=== PATIENT | female | born 1960 | race Caucasian/White ===

== ENCOUNTER 2016-04-02 22:23 | Emergency (ER) | payer MEDICARE, MEDICAID ==
[~2016-04-02 22:23] MED LIST: Nitroglycerin 0.4 MG TAB 1 EACH ONE
[2016-04-02] MEDS ORDERED: Dexamethasone 10 MG/ML VIAL ONE (22:44)
[2016-04-02] MEDS ORDERED: methylPREDNISolone Sod Succ/PF 125 MG/2 ML VIAL ONE (22:44)
[2016-04-02 22:55] LABS: INR-International Normal Ratio 1.7; PTT 37.7 SEC (22.9-36.1); Prothrombin Time 20.5 SEC (12.0-14.7)
[2016-04-02 23:03] LABS: Eosinophils 9 % (0-10); Hemoglobin 14.2 g/dL (12.0-16.0); Lymphocytes 35 % (21-51); MDiff Complete? YES; Mean Corpuscular HGB CONC 33.6 g/dL (32.0-36.0); Mean Corpuscular Hemoglobin 30.7 pg (27.0-31.0); Mean Corpuscular Volume 91.5 fl (81.0-99.0); Mean Platelet Volume 7.6 fL (7.4-10.4); Monocytes 8 % (0-10); Neutrophil 47 % (42-75); PLT Morphology Comment Appears Increased; Platelet Count 484 thou/uL (130-400); Red Blood Cell (RBC) Count 4.64 mill/uL (4.20-5.40); White Blood Cell (WBC) Count 11.4 thou/uL (4.8-10.8)
[2016-04-02 23:06] LABS: ALT (SGPT) 23 U/L (0-55); AST (SGOT) 20 U/L (5-34); Alkaline Phosphatase 64 U/L (40-150); Anion Gap 18 mmol/L (10-20); BUN (Urea Nitrogen) 11 mg/dL (9.8-20.1); Bilirubin, Total 0.9 mg/dL (0.2-1.2); CK (CPK) 63 U/L (29-168); Calc. Creatinine Clearance 0 mL/min (70-130); Calcium 9.6 mg/dL (7.8-10.44); Carbon Dioxide 21 mmol/L (22-29); Chloride 106 mmol/L (98-107); Estimated GFR-MDRD 54; Globulin 3.1 g/dL (2.4-3.5); Glucose 97 mg/dL (70-105); Potassium 4.3 mmol/L (3.5-5.1); Protein, Total 7.1 g/dL (6.0-8.3); Sodium 141 mmol/L (136-145)
[2016-04-02 23:08] LABS: Troponin I Less than 0.010 ng/mL (< 0.028)
--- NOTE | 2016-04-02 23:10 | RAD ---
PORTABLE CHEST 1 VIEW: Date: 04/02/16 Time: 2242 hours HISTORY: Dyspnea. FINDINGS: Comparison made with exam of 02/12/16. The heart size is enlarged. The lungs are well expanded without confluent areas of consolidation, p neumothorax, dada pulmonary edema, or pleural effusions. There is mild prominence of the pulmonary vascularity. IMPRESSION: Cardiomegaly. POS: [facility]
--- NOTE | 2016-04-03 00:57 | PICIS ---
[facility] EMERGENCY RECORD TRIAGE ([facility] Apr 02, 2016 22:27 JDEA) TRIAGE NOTES: pt in for shortness of breath and chest pain. ([facility] Apr 02, 2016 22:27 JDEA) PATIENT: NAME: Barbie Doshi, AGE: 56, GENDER: female, : Jennie 1960, TIME OF GREET: MonApr 02, 2016 22:24, PREFERRED LANGUAGE: Danish, ETHNICITY: Not or , ECODE BILLING MAP: [facility], SSN: [id number], Zip Code: [address], KG WEIGHT: 97.52, , , PERSON ID: [id number], PCP: MD PIERRE IMELDA. ([facility] Apr 02, 2016 22:27 JDEA) PHONE: . ([place] Apr 03, 2016 00:41) COMPLAINT: SOB. ([facility] Apr 02, 2016 22:27 JDEA) ADMISSION: URGENCY: 2 Emergent, ADMISSION SOURCE: Home, TRANSPORT: Walk-in, BED: TRIAGE. ([facility] Apr 02, 2016 22:27 JDEA) IMMUNIZATIONS: Flu vaccine up to date, Tetanus immunization up to date, Pneumococcal vaccine not up to date. (22:28 JDEA) TRIAGE SCREENING: Patient denies suicidal ideation, Patient denies presence of domestic violence. (22:28 JDEA) LMP: LMP: Not Applicable. (22:28 JDEA) PROVIDERS: TRIAGE NURSE: Carmina Murray RN. ([facility] Apr 02, 2016 22:27 JDEA) VITAL SIGNS: BP 112/98, Pulse 115, Resp 24, Temp 98.6, (Oral), Pain 7, O2 Sat 96, on Room Air, Time 04/02/2016 22:27. (22:27 JDEA) PREVIOUS VISIT ALLERGIES: morphine (bulk). ([facility] Apr 02, 2016 22:27 JDEA) morphine (bulk). (22:28 JDEA) KNOWN ALLERGIES morphine (bulk) CURRENT MEDICATIONS albuterol sulfate: HFA AEROSOL WITH ADAPTER (GRAM) : Strength - 90 mcg : INHALATION Patient Dose: 2 puff(s) every 4 hours prn. (22:28 JDEA) aspirin: TABLET : Strength - 81 mg : ORAL Patient Dose: 81 mg Oral once a day. (22:41 CJEF) carvedilol: TABLET : Strength - 3.125 mg : ORAL Patient Dose: 3.125 mg Oral 2 times a day. (22:42 CJEF) furosemide: TABLET : Strength - 20 mg : ORAL Patient Dose: 20 mg Oral once a day. (22:42 CJEF) lisinopril: TABLET : Strength - 2.5 mg : ORAL Patient Dose: 2..5 mg Oral once a day. (22:42 CJEF) folic acid: CAPSULE : Strength - 20 mg : ORAL Patient Dose: Unknown. (22:42 CJEF) Xarelto: &a-1R&a+25V*p+0X*s9021U*c202B*c15G*c2P*p-0X&a-25V&a+1R Name: Barbie Doshi : 1960 F56 MedRec: [id number] AcctNum: [id number] Prepared: [place] Apr 03, 2016 01:13 by Interface Page 1 of 16 pMD [facility] EMERGENCY RECORD TABLET : Strength - 20 mg : ORAL Patient Dose: 20 mg Oral once a day. (22:42 CJEF) VITAL SIGNS VITAL SIGNS: BP: 112/98, Pulse: 115, Resp: 24, Temp: 98.6 (Oral), Pain: 7, O2 sat: 96 on Room Air, Time: 04/02/2016 22:27. (22:27 JDEA) BP: 106/64, Pulse: 102, Resp: 18, Pain: 10, O2 sat: 100 on Face mask, Time: 04/02/2016 22:59. (22:59 CJEF) BP: 106/64, Pulse: 94, Resp: 19, Pain: 10, O2 sat: 100 on Face mask, Time: 04/02/2016 23:02. (23:02 CJEF) BP: 112/55, Pulse: 96, Resp: 20, O2 sat: 95 on Room Air, Time: 04/02/2016 23:50. (23:50 CJEF) Pain: 8 (Intermittent), Time: 04/02/2016 23:54. (23:54 CJEF) BP: 98/61, Pulse: 109, Resp: 20, O2 sat: 95 on Room Air, Time: 04/02/2016 23:55. (23:55 CJEF) BP: 97/62, Pulse: 97, Resp: 18, Temp: 98.6 (Oral), Pain: 6, O2 sat: 94 on Room Air, Time: 04/03/2016 00:40. ([place] Apr 03, 2016 00:40 JDEA) NURSING ASSESSMENT: CARDIOVASCULAR (22:37 CJEF) CONSTITUTIONAL: Complex assessment performed, Patient arrives, via hospital wheelchair, Unsteady gait, Assistance to cart, History obtained from patient, Patient appears, in distress due to pain, in respiratory distress, Patient cooperative, Patient alert, Oriented to person, place and time, Skin warm, Skin dry, Skin normal in color, Mucous membranes pink, Mucous membranes moist, Patient is well-groomed, PT REPORTS FEELING WEAK FOR SEVERAL DAYS, WHICH WORSENED TONIGHT. PT REPORS HX OF A-FIB AND CHF. PT REPORTS SHE STARTED HAVING SOB AND LEFT SIDE CHEST PAIN TODAY, WHICH SHE STATES CAUSES A "HEAVY" FEELING TO HER LEFT CHEST. PAIN: aching pain, to the left chest, on a scale 0-10 patient rates pain as 10. CARDIOVASCULAR: Cardiovascular assessment findings include heart rate normal, Heart rhythm normal sinus, Heart sounds normal, S1, S2, No associated diaphoresis, Associated with dyspnea, with exertion, with position change. RESPIRATORY/CHEST: Breath sounds clear, Respiratory assessment findings include respiratory effort, labored, Respirations regular, Converses, in short phrases, Neck and chest exam findings include trachea midline, Chest expansion equal, Chest movement symmetrical, Signs of distress, in moderate distress. NOTES: Patient tolerated procedure well. SAFETY: Side rails up, Cart/Stretcher in lowest position, Family at bedside, Call light within reach, Hospital ID band on. NURSING ASSESSMENT: FALL RISK (22:44 CJEF) FALL RISK: Total score 0, No risk for fall. HENDR[place] II FALL RISK: Able to rise in a single movement; no loss of balance with steps(0), Total score 0, Score less than 5. &a-1R&a+25V*p+0X*m3513O*c202B*c15G*c2P*p-0X&a-25V&a+1R Name: Barbie Doshi : 1960 F56 MedRec: [id number] AcctNum: [id number] Prepared: [place] Apr 03, 2016 01:13 by Interface Page 2 of 16 pMD [facility] EMERGENCY RECORD Patient not high risk for falls. NURSING ASSESSMENT: SKIN (22:39 CJEF) SKIN: Skin assessment findings include skin warm, Skin dry, Skin normal in color. DIANA SCALE: (4) Sensory perception has no impairment, (4) Skin is rarely moist, (4) Patient walks frequently, (3) Slightly limited mobility, (3) Adequate nutrition, (3) Patient has no apparent problem moving, Diana Risk Total: 21. NOTES: Patient tolerated procedure well. SAFETY: Side rails up, Cart/Stretcher in lowest position, Family at bedside, Call light within reach, Hospital ID band on. NURSING PROCEDURE: BEDSIDE RADIOLOGY (22:45 CJEF) PATIENT IDENTIFIER: Patient actively involved in identification process, Patient's identity verified by patient stating name, Patient's identity verified by patient stating date. BEDSIDE RADIOLOGY: Portable chest x-ray performed. NOTES: Patient tolerated procedure well. SAFETY: Side rails up, Cart/Stretcher in lowest position, Family at bedside, Call light within reach, Hospital ID band on. NURSING PROCEDURE: REIMBURSEMENT AUDITOR (22:40 CJEF) PATIENT IDENTIFIER: Patient actively involved in identification process, Patient's identity verified by patient stating name, Patient's identity verified by patient stating date. REIMBURSEMENT AUDITOR: Cardiac monitoring indicated for complaint of chest pain, Patient placed on cardiac catheterization technician, Heart rate: 115, showing atrial fibrillation, Patient placed on non-invasive blood pressure monitor, Patient placed on continuous pulse oximetry, Adult/pediatric oxisensor applied. FOLLOW-UP: After procedure, alarms set and on, After procedure, patient tolerating monitoring. NOTES: Patient tolerated procedure well. SAFETY: Side rails up, Cart/Stretcher in lowest position, Family at bedside, Call light within reach, Hospital ID band on. NURSING PROCEDURE: COMMUNICATIONS COMMUNICATIONS: Other notification, Name HUMBERTO, contacted at [facility], Reason for notification TRANSFER FOR UNSTABLE ANGINA. ([place] Apr 03, 2016 00:35 ADEA) Notes: TRANSFER ACCEPTED BY DR. SHELLEY AND IRA GRECO. ([place] Apr 03, 2016 00:39 ADEA) Ambulance service, contacted at [phone], Name of provider PUJA, Person contacted REJI, requested for transfer to another facility, by advanced life support transport, Estimated time of arrival 5 MIN, ALS TRANSPORT. ([place] Apr 03, 2016 00:40 ADEA) NURSING PROCEDURE: EKG CHART (22:33 CJEF) PATIENT IDENTIFIER: Patient actively involved in identification &a-1R&a+25V*p+0X*m0766N*c202B*c15G*c2P*p-0X&a-25V&a+1R Name: Barbie Doshi : 1960 F56 MedRec: [id number] AcctNum: [id number] Prepared: [place] Apr 03, 2016 01:13 by Interface Page 3 of 16 pMD [facility] EMERGENCY RECORD process, Patient's identity verified by patient stating name, Patient's identity verified by patient stating date. EKG: EKG indicated for complaint of chest pain, 12 lead EKG performed on the left chest, first EKG. FOLLOW-UP: After procedure, EKG for interpretation given to Dr. ESTRADA. NOTES: Patient tolerated procedure well. SAFETY: Side rails up, Cart/Stretcher in lowest position, Family at bedside, Call light within reach, Hospital ID band on. NURSING PROCEDURE: IV (22:40 CJEF) PATIENT IDENITIFIER: Patient actively involved in identification process, Patient's identity verified by patient stating name, Patient's identity verified by patient stating date. IV SITE 1: IV therapy indicated for hydration, IV therapy indicated for medication administration, IV established, to the right hand, using an 18 gauge catheter, in one attempt, IV site prepped with CHLORAPREP, Saline lock established, Flushed with normal saline (mls): 10. FOLLOW-UP SITE 1: After procedure, sterile transparent dressing applied. NOTES: Patient tolerated procedure well, Procedure done by CARMINA TOBIAS. SAFETY: Side rails up, Cart/Stretcher in lowest position, Family at bedside, Call light within reach, Hospital ID band on. NURSING PROCEDURE: NURSE NOTES NURSES NOTES: Patient in no apparent distress, Patient states decreased pain, Patient resting quietly, Notes: PT RESTING IN BED QUIETLY WITH FAMILY AT BEDSIDE. NO DISTRESS NOTED. (23:25 CJEF) Patient in no apparent distress, Patient resting quietly, Notes: PT RESTING IN BED QUIETLY WITH FAMILY AT BEDSIDE. NO DISTRESS NOTED. (23:53 CJEF) NURSING PROCEDURE: OXYGEN THERAPY (22:50 CJEF) PATIENT IDENTIFIER: Patient actively involved in identification process, Patient's identity verified by patient stating name, Patient's identity verified by patient stating date. OXYGEN THERAPY: Oxygen therapy indicated for chest pain, Oxygen therapy indicated for respiratory distress, Prior to procedure, breath sounds clear, Oxygen saturation 96%, by adult/pediatric oxisensor, single pulse oximetry reading, Notes: DUO NEB ADMINISTERED X3 DOSES AT 6LPM. FOLLOW-UP: After procedure, oxygen saturation 100%, After procedure, breath sounds clear. NOTES: Patient tolerated procedure well. SAFETY: Side rails up, Cart/Stretcher in lowest position, Family at bedside, Call light within reach, Hospital ID band on. &a-1R&a+25V*p+0X*p9100N*c202B*c15G*c2P*p-0X&a-25V&a+1R Name: Barbie Doshi : 1960 F56 MedRec: [id number] AcctNum: [id number] Prepared: [place] Apr 03, 2016 01:13 by Interface Page 4 of 16 D [facility] EMERGENCY RECORD NURSING PROCEDURE: TRANSFER ([place] Apr 03, 2016 01:00 JDEA) TRANSFER: Reason for transfer need for specialized care, Diagnosis: unstable angina, Accepting institution: [facility], Accepting physician: Lorraine, Referring physician: Sean, Transported by non-urgent ambulance, accompanied by emergency medical services personnel, Report called to receiving facility, Summary of Care printed. BELONGINGS: Belongings and valuables with patient at time of admission include:, Belongings remain with patient. ORDER DETAILS Order Name: B type Natriuretic Peptide, Status: Active, Time: 22:30 04/02/2016, User: HARIS, - Ordered for: MD Estrada Lloyd, - Entered by: MD Estrada Lloyd - Sat Apr 02, 2016 22:30, - Quantity: 1, Order Name: REIMBURSEMENT AUDITOR ED, Status: Done, Time: 22:37 04/02/2016, User: CJEF, - Ordered for: MD Estrada Lloyd, - Entered by: MD Estrada Lloyd - [facility] Apr 02, 2016 22:30, - Quantity: 1, Order Name: Cardiac Profile w/CKMB & Troponin - I, Status: Active, Time: 22:30 04/02/2016, User: HARIS, - Ordered for: MD Estrada Lloyd, - Entered by: MD Estrada Lloyd - [facility] Apr 02, 2016 22:30, - Quantity: 1, Order Name: CBC with Differential, Status: Active, Time: 22:30 04/02/2016, User: HARIS, - Ordered for: MD Estrada Lloyd, - Entered by: MD Estrada Lloyd - [facility] Apr 02, 2016 22:30, - Quantity: 1, Order Name: CK (CPK), Status: Active, Time: 22:30 04/02/2016, User: HARIS, - Ordered for: MD Estrada Lloyd, - Entered by: MD Estrada Lloyd - [facility] Apr 02, 2016 22:30, - Quantity: 1, Order Name: Comprehensive Metabolic Panel, Status: Active, Time: 22:30 04/02/2016, User: HARIS, - Ordered for: MD Estrada Lloyd, - Entered by: MD Estrada Lloyd - [facility] Apr 02, 2016 22:30, - Quantity: 1, Order Name: D-Dimer (Quantitative), Status: Active, Time: 00:40 04/03/2016, User: HARIS, - Ordered for: MD Estrada Lloyd, - Entered by: MD Estrada Lloyd - [place] Apr 03, 2016 00:40, - Quantity: 1, Order Name: EKG 12 Lead in Emergency Room, Status: Active, Time: 22:30 04/02/2016, User: HARIS, - Ordered for: MD Estrada Lloyd, &a-1R&a+25V*p+0X*g8731U*c202B*c15G*c2P*p-0X&a-25V&a+1R Name: Barbie Doshi : 1960 F56 MedRec: [id number] AcctNum: [id number] Prepared: [place] Apr 03, 2016 01:13 by Interface Page 5 of 16 D [facility] EMERGENCY RECORD - Entered by: MD Estrada Lloyd - Sat Apr 02, 2016 22:30, - Quantity: 1, Order Name: ERRT * Smal Vol Neb Initial Trmt, Status: Active, Time: 22:29 04/02/2016, User: HARIS, - Ordered for: MD Estrada Lloyd, - Entered by: MD Estrada Lloyd - Sat Apr 02, 2016 22:29, - Quantity: 1, Order Name: ERRT Small Vol Neb Sub Trmt, Status: Active, Time: 22:29 04/02/2016, User: LL, - Ordered for: MD Estrada Lloyd, - Entered by: MD Estrada Lloyd - Sat Apr 02, 2016 22:29, - Quantity: 1, Order Name: ERRT Oxygen Usage ER, Status: Active, Time: 22:30 04/02/2016, User: LL, - Ordered for: MD Estrada Lloyd, - Entered by: MD Estrada Lloyd - Sat Apr 02, 2016 22:30, - Quantity: 1, Order Name: Magnesium, Status: Active, Time: 22:30 04/02/2016, User: LLDO, - Ordered for: MD Estrada Lloyd, - Entered by: MD Estrada Lloyd - Sat Apr 02, 2016 22:30, - Quantity: 1, Order Name: Protime with INR, Status: Active, Time: 22:30 04/02/2016, User: LLDO, - Ordered for: MD Estrada Lloyd, - Entered by: MD Estrada Lloyd - Sat Apr 02, 2016 22:30, - Quantity: 1, Order Name: PTT, Status: Active, Time: 22:30 04/02/2016, User: LLDO, - Ordered for: MD Estrada Lloyd, - Entered by: MD Estrada Lloyd - Sat Apr 02, 2016 22:30, - Quantity: 1, Order Name: SALINE LOCK, Status: Done, Time: 22:37 04/02/2016, User: [facility], - Ordered for: MD Estrada Lloyd, - Entered by: MD Estrada Lloyd - [place] Apr 02, 2016 22:30, - Quantity: 1, Order Name: XR Chest 1 View Portable, Status: Active, Time: 22:30 04/02/2016, User: HARSI, - Ordered for: MD Estrada Lloyd, - Entered by: MD Estrada Lloyd - [place] Apr 02, 2016 22:30, - Quantity: 1. MEDICATION ADMINISTRATION SUMMARY Drug Name: Dilaudid injection, Dose Ordered: 1 mg, Route: IV Push, Status: Given, Time: 00:53 04/03/2016, Drug Name: *nitroglycerin sublingual, Dose Ordered: 1 tab(s), Route: Oral, Status: Held, Time: 23:57 04/02/2016, Drug Name: *nitroglycerin sublingual, Dose Ordered: 1 tab(s), Route: Oral, Status: Held, Time: 23:56 04/02/2016, &a-1R&a+25V*p+0X*t8313N*c202B*c15G*c2P*p-0X&a-25V&a+1R Name: Barbie Doshi : 1960 F56 MedRec: [id number] AcctNum: [id number] Prepared: [place] Apr 03, 2016 01:13 by Interface Page 6 of 16 pMD [facility] EMERGENCY RECORD Drug Name: *nitroglycerin sublingual, Dose Ordered: 1 tab(s), Route: Oral, Status: Given, Time: 23:52 04/02/2016, Drug Name: DuoNeb, Dose Ordered: 1 inhalation, Route: Nebulize, Status: Given, Time: 23:00 04/02/2016, Drug Name: DuoNeb, Dose Ordered: 1 inhalation, Route: Nebulize, Status: Given, Time: 22:55 04/02/2016, Drug Name: Decadron injection, Dose Ordered: 10 mg, Route: IV Push, Status: Given, Time: 22:52 04/02/2016, Drug Name: Solu-MEDROL Mix-O-Vial, Dose Ordered: 125 mg, Route: IV Push, Status: Given, Time: 22:50 04/02/2016, Drug Name: DuoNeb, Dose Ordered: 1 inhalation, Route: Nebulize, Status: Given, Time: 22:49 04/02/2016, *Additional information available in notes, Detailed record available in Medication Service section. MEDICATION SERVICE Decadron injection: Order: Decadron injection (dexamethasone sod phosphate) - Dose: 10 mg : IV Push Schedule: Now Ordered by: Marvin Estrada MD Entered by: Marvin Estrada MD Sat Apr 02, 2016 22:31 Documented as given by: Izabela Vee, JATINDER Sat Apr 02, 2016 22:52 Patient, Medication, Dose, Route and Time verified prior to administration. Amount given: 10 MG, IV SITE #1 IVP, subsequent different medication, Slowly, Awake and alert- acceptable, Connections checked prior to administration, Line traced prior to administration, Catheter placement confirmed via flush prior to administration, IV site without signs or symptoms of infiltration during medication administration, No swelling during administration, No drainage during administration, IV flushed after administration, Correct patient, time, route, dose and medication confirmed prior to administration, Patient advised of actions and side-effects prior to administration, Allergies confirmed and medications reviewed prior to administration, Patient tolerated procedure well, Patient in position of comfort, Side rails up, Cart in lowest position, Family at bedside. : Follow Up : Response assessment performed, No signs or symptoms of allergic reaction noted, Advised not to ambulate without assistance, Patient in position of comfort, Side rails up, Cart in lowest position, Family at bedside. (23:00 [facility]) DuoNeb: Order: DuoNeb (ipratropium bromide/albuterol sulfate) - Dose: 1 inhalation : Nebulize Schedule: Every 5 minutes Repeat: 3 DOSES Ordered by: Marvin Estrada MD Entered by: Marvin Estrada MD Sat Apr 02, 2016 22:31 Documented as given by: Izabela Vee RN Sat Apr 02, 2016 22:49 Patient, Medication, Dose, Route and Time verified prior to administration. Amount given: 1 NEB, Site: Medication administered via Hand-held nebulizer, With oxygen, Correct patient, time, route, dose and &a-1R&a+25V*p+0X*t8957J*c202B*c15G*c2P*p-0X&a-25V&a+1R Name: Barbie Doshi : 1960 F56 MedRec: [id number] AcctNum: [id number] Prepared: [place] Apr 03, 2016 01:13 by Interface Page 7 of 16 pMD [facility] EMERGENCY RECORD medication confirmed prior to administration, Patient advised of actions and side-effects prior to administration, Allergies confirmed and medications reviewed prior to administration, Patient tolerated procedure well, Patient in position of comfort, Side rails up, Cart in lowest position, Family at bedside. : Follow Up : Response assessment performed, No signs or symptoms of allergic reaction noted, Decreased respiratory effort, Advised not to ambulate without assistance, Patient in position of comfort, Side rails up, Cart in lowest position, Family at bedside. (23: [facility]) DuoNeb: Order: DuoNeb (ipratropium bromide/albuterol sulfate) - Dose: 1 inhalation : Nebulize Schedule: Every 5 minutes Repeat: 3 DOSES Ordered by: Marvin Estrada MD Entered by: Izabela Vee RN [facility] Apr 02, 2016 22:56 Documented as given by: Izabela Vee RN [facility] Apr 02, 2016 22:55 Patient, Medication, Dose, Route and Time verified prior to administration. Amount given: 1 NEB, With oxygen, Correct patient, time, route, dose and medication confirmed prior to administration, Patient advised of actions and side-effects prior to administration, Allergies confirmed and medications reviewed prior to administration, Patient tolerated procedure well, Patient in position of comfort, Side rails up, Cart in lowest position, Family at bedside. : Follow Up : Response assessment performed, No signs or symptoms of allergic reaction noted, Decreased respiratory effort, Advised not to ambulate without assistance, Patient in position of comfort, Side rails up, Cart in lowest position, Family at bedside. (23: [facility]) DuoNeb: Order: DuoNeb (ipratropium bromide/albuterol sulfate) - Dose: 1 inhalation : Nebulize Schedule: Every 5 minutes Repeat: 3 DOSES Ordered by: Marvin Estrada MD Entered by: Izabela Vee RN [facility] Apr 02, 2016 22:57 Documented as given by: Izabela Vee RN [facility] Apr 02, 2016 23:00 Patient, Medication, Dose, Route and Time verified prior to administration. Amount given: 1 NEB, Site: Medication administered via Hand-held nebulizer, With oxygen, Correct patient, time, route, dose and medication confirmed prior to administration, Patient advised of actions and side-effects prior to administration, Allergies confirmed and medications reviewed prior to administration, Patient tolerated procedure well, Patient in position of comfort, Side rails up, Cart in lowest position, Family at bedside. : Follow Up : Response assessment performed, No signs or symptoms of allergic reaction noted, Decreased respiratory effort, Advised not to ambulate without assistance, Patient in position of comfort, Side rails up, Cart in lowest position, Family at bedside. (23:01 [facility]) nitroglycerin sublingual: Order: nitroglycerin sublingual &a-1R&a+25V*p+0X*h3097Y*c202B*c15G*c2P*p-0X&a-25V&a+1R Name: Barbie Doshi : 1960 F56 MedRec: [id number] AcctNum: [id number] Prepared: [place] Apr 03, 2016 01:13 by Interface Page 8 of 16 pMD [facility] EMERGENCY RECORD (nitroglycerin) - Dose: 1 tab(s) : Oral Schedule: Every 5 minutes Repeat: 3 DOSES Notes: UNTIL PAIN GONE OR SBP DROPS BELOW 105 Ordered by: Marvin Estrada MD Entered by: Marvin Estrada MD Sat Apr 02, 2016 23:47 Documented as given by: Izabela Vee RN Sat Apr 02, 2016 23:52 Patient, Medication, Dose, Route and Time verified prior to administration. Amount given: 0.4 MG, Site: Medication administered S.L., Mouth check performed after administration of medication, Patient appears Awake and alert- acceptable, Correct patient, time, route, dose and medication confirmed prior to administration, Patient advised of actions and side-effects prior to administration, Allergies confirmed and medications reviewed prior to administration, Patient tolerated procedure well, Patient in position of comfort, Side rails up, Cart in lowest position, Family at bedside. nitroglycerin sublingual: Order: nitroglycerin sublingual (nitroglycerin) - Dose: 1 tab(s) : Oral Schedule: Every 5 minutes Repeat: 3 DOSES Notes: UNTIL PAIN GONE OR SBP DROPS BELOW 105 Ordered by: Marvin Estrada MD Entered by: Izabela Vee RN Sat Apr 02, 2016 23:53 , Held by: Izabela Vee RN Sat Apr 02, 2016 23:56 Reason: Vital signs out of range:BP 98/61. nitroglycerin sublingual: Order: nitroglycerin sublingual (nitroglycerin) - Dose: 1 tab(s) : Oral Schedule: Every 5 minutes Repeat: 3 DOSES Notes: UNTIL PAIN GONE OR SBP DROPS BELOW 105 Ordered by: Marvin Estrada MD Entered by: Izabela Vee RN Sat Apr 02, 2016 23:53 , Held by: Izabela Vee RN Sat Apr 02, 2016 23:57 Reason: Vital signs out of range. Solu-MEDROL Mix-O-Vial: Order: Solu-MEDROL Mix-O-Vial (methylprednisolone sod succ) - Dose: 125 mg : IV Push Schedule: Now Ordered by: Marvin Estrada MD Entered by: Marvin Estrada MD Sat Apr 02, 2016 22:31 Documented as given by: Izabela Vee RN Sat Apr 02, 2016 22:50 Patient, Medication, Dose, Route and Time verified prior to administration. Amount given: 125 MG, IV SITE #1 IVP, initial medication, Slowly, Awake and alert- acceptable, Connections checked prior to administration, Line traced prior to administration, Catheter placement confirmed via flush prior to administration, IV site without signs or symptoms of infiltration during medication administration, No swelling during administration, No drainage during administration, IV flushed after administration, Correct patient, time, route, dose and medication confirmed prior to administration, Patient advised of actions and side-effects prior to administration, Allergies confirmed and medications reviewed prior to administration, &a-1R&a+25V*p+0X*v6989P*c202B*c15G*c2P*p-0X&a-25V&a+1R Name: Barbie Doshi : 1960 F56 MedRec: [id number] AcctNum: [id number] Prepared: [place] Apr 03, 2016 01:13 by Interface Page 9 of 16 pMD [facility] EMERGENCY RECORD Patient tolerated procedure well, Patient in position of comfort, Side rails up, Cart in lowest position, Family at bedside. : Follow Up : Response assessment performed, No signs or symptoms of allergic reaction noted, Advised not to ambulate without assistance, Patient in position of comfort, Side rails up, Cart in lowest position, Family at bedside. (23:01 CJEF) HPI SHORTNESS OF BREATH (23:16 LLDO) CHIEF COMPLAINT: Patient presents for evaluation of shortness of breath, Patient presents for evaluation of chest pain, Patient presents for evaluation of pt says she hasn't been feeling good for "a couple of days." tonight, though, the sob became much owrse and she started with worsening cough and some bilateral anterior chest pain when she coughed. some nausea. HISTORIAN: History provided by patient, History provided by patient's spouse, the chest pain is mostly substernal with radiation into the middle of the back. also rad in to both shoulders and down both arms. worse with deep respiration and cough but never completely clears. scant production. LOCATION: Symptoms are generalized. QUALITY: Denies tightness, Denies wheezing, Pain is dull in nature, described as aching, described as pressure-like. SEVERITY: Maximum severity of symptoms moderate, Currently symptoms are moderate. TIME COURSE: Gradual onset of symptoms, Symptoms are worsening, are constant. ASSOCIATED WITH: Associated with anxiety, Associated with cough, Associated with chest pain, Associated with dyspnea on exertion, Associated with hyperventilation, Associated with upper respiratory infection, No associated vomiting, No associated wheezing. EXACERBATED BY: Patient's condition exacerbated by deep breaths, Patient's condition exacerbated by exercise. RELIEVED BY: Patient's condition relieved by nothing. RISK FACTORS: Coronary artery disease risk factors, include known coronary artery disease, include hypertension, Thoracic aortic dissection risk factors, include hypertension, Pulmonary embolism risk factors, not applicable to this patient. ROS CONSTITUTIONAL: Historian reports fatigue, reports malaise. (23:34 LLDO) EYES: Negative eye review of systems, Historian denies eye pain, denies eye redness, denies eye discharge. (23:41 LLDO) ENT: Negative ears, nose, throat review of systems, Historian denies epistaxis, denies rhinorrhea, denies sinus pain, denies sore throat. (23:41 LLDO) CARDIOVASCULAR: Historian reports chest pain, &a-1R&a+25V*p+0X*y5162I*c202B*c15G*c2P*p-0X&a-25V&a+1R Name: Barbie Doshi : 1960 F56 MedRec: [id number] AcctNum: [id number] Prepared: Rica Apr 03, 2016 01:13 by Interface Page 10 of 16 pMD [facility] EMERGENCY RECORD radiation to, the back, Historian denies diaphoresis, reports dyspnea on exertion, denies edema. (23:34 LLDO) RESPIRATORY: Historian reports cough, reports shortness of breath, denies sputum, denies stridor, denies wheezing. (23:34 LLDO) GI: Historian denies vomiting. (23:34 LLDO) GENITOURINARY FEMALE: Negative genitourinary review of systems, Historian denies dysuria, denies frequency, denies urgency. (23:41 LLDO) MUSCULOSKELETAL: Negative musculoskeletal review of systems, Historian denies arthralgias, denies back pain, denies injury, denies myalgias, denies neck pain. (23:41 LLDO) SKIN: Negative skin review of systems, Historian denies cellulitis, denies rash, denies skin changes, denies skin lesions. (23:41 LLDO) NEUROLOGIC: Negative neurologic review of systems, Historian denies confusion, denies dizziness, denies focal weakness, denies mental status changes. (23:41 LLDO) HEMO/LYMPHATIC: Normal hematologic/lymphatic system review, Historian denies abnormal blood clotting, denies gum bleeding, denies petechiae. (23:41 LLDO) ALLERGIC/IMMUNOLOGIC: Normal allergy/immunologic system review, Historian denies eczema, denies environmental allergies, denies food allergies. (23:41 LLDO) PSYCHIATRIC: Historian reports anxiety. (23:34 LLDO) NOTES: All systems reviewed, negative except as described above. (23:34 LLDO) PAST MEDICAL HISTORY MEDICAL HISTORY: Past medical history includes cardiac history, congestive heart failure, Past medical history includes cardiac history, myocardial infarction, Past medical history includes history of hypertension, Past medical history includes pulmonary disease, asthma. (22:28 JDEA) FEMALE SURGICAL HISTORY: Surgical history of cholecystectomy, Surgical history of orthopedic surgery, TOMAS FEET, TOMAS KNEE, L LEG, R HIP, Surgical history of splenectomy, Surgical history of tubal ligation. (22:28 JDEA) PSYCHIATRIC HISTORY: No previous psychiatric history. (22:28 JDEA) SOCIAL HISTORY: Lives at home, with family, Patient denies alcohol use, Patient denies drug use, Patient has no smoking history. (22:28 JDEA) NOTES: Nursing records reviewed, Agree with nursing records, Medication list reviewed. (23:39 LLDO) PHYSICAL EXAM CONSTITUTIONAL: Vital Signs Reviewed, Patient afebrile, Pulse normal, Blood pressure normal, Respiratory rate normal, Normal pulse &a-1R&a+25V*p+0X*c7636T*c202B*c15G*c2P*p-0X&a-25V&a+1R Name: Barbie Doshi : 1960 F56 MedRec: [id number] AcctNum: [id number] Prepared: Rica Apr 03, 2016 01:13 by Interface Page 11 of 16 pMD [facility] EMERGENCY RECORD oximetry, Patient appears non toxic, Patient appears pain free, Patient alert and oriented to person, place and time, Nursing notes reviewed. (23:36 LLDO) HEAD: Head exam normal, Head exam included findings of head atraumatic, normocephalic. (23:41 LLDO) EYES: Eye exam normal, Eye exam included findings of eyelids normal to inspection, Pupils equally round and reactive to light, Extraocular muscles intact. (23:41 LLDO) ENT: ENT exam normal, Ear exam normal, Nose exam normal. (23:41 LLDO) NECK: Neck exam normal, Neck exam included findings of normal range of motion, Trachea midline, no meningeal signs, no tenderness. (23:41 LLDO) RESPIRATORY CHEST: Respiratory exam included findings of no respiratory distress, Wheezing present, Rales present, Chest exam included findings of chest movement symmetrical, Chest expansion equal, WHEEZES MILD AND DIFFUSE AND RALES MILD AND DIFFUSE. (23:36 LLDO) CARDIOVASCULAR: Cardiovascular exam included findings of, rate normal, rhythm irregularly irregular, Heart sounds normal, Point of maximal impulse normal. (23:36 LLDO) ABDOMEN FEMALE: Abdominal exam normal, Abdominal exam included findings of abdomen nontender, Bowel sounds normal, no peritoneal signs. (23:41 LLDO) BACK: Back exam normal, Back exam included findings of normal inspection, range of motion normal. (23:41 LLDO) UPPER EXTREMITY: Upper extremity exam normal, Upper extremity exam included findings of inspection normal, Range of motion normal. (23:41 LLDO) LOWER EXTREMITY: Lower extremity exam normal, Lower extremity exam included findings of inspection normal, Range of motion normal. (23:41 LLDO) NEURO: Neuro exam normal, Neuro exam findings include patient oriented to person, place and time, Speech normal, [place] coma scale 15. (23:41 LLDO) SKIN: Skin exam normal, Skin exam included findings of skin warm, dry, and normal in color, no rash. (23:41 LLDO) PSYCHIATRIC: Psychiatric exam normal, Psychiatric exam included findings of patient oriented to person place and time, Normal affect. (23:41 LLDO) EVENTS TRANSFER: Triage to Emergency Triage. (22:27 JDEA) Emergency Triage to Main ED -05. (22:28 JDEA) Removed from Emergency Main ED -05. (MonApr 03, 2016 01:00 JDEA) DOCTOR NOTES (MonApr 03, 2016 01:02 LLDO) TEXT: accepted by dr thrasher for [facility]. PROBLEM LIST &a-1R&a+25V*p+0X*d6020H*c202B*c15G*c2P*p-0X&a-25V&a+1R Name: Barbie Doshi : 1960 F56 MedRec: [id number] AcctNum: [id number] Prepared: MonApr 03, 2016 01:13 by Interface Page 12 of 16 pMD [facility] EMERGENCY RECORD No recorded problems DIAGNOSIS (MonApr 03, 2016 00:46 LLDO) FINAL: PRIMARY: UNSTABLE ANGINA, ADDITIONAL: CAD, COPD UNSPECIFIED, Hypertension, UNSPECIFIED ATRIAL FIBRILLATION. DISPOSITION PATIENT: Disposition Type: Transfer, Disposition: Transfer to [facility]. (MonApr 03, 2016 00:27 LLDO) Patient left the department. (MonApr 03, 2016 01:00 JDEA) PRESCRIPTION No recorded prescriptions IMAGING *EKG: Image captured from scanner. (23:03 [facility]) *MEMORANDUM OF TRANSFER: Image captured from scanner. (MonApr 03, 2016 00:48 ADEA) CONSENT FOR TRANSFER: Image captured from scanner. (MonApr 03, 2016 00:49 ADEA) EMS TRANSPORT ORDERS: Image captured from scanner. (MonApr 03, 2016 00:49 ADEA) TRANSFER WORKSHEET: Image captured from scanner. (MonApr 03, 2016 00:59 ADEA) Page 2 added. Image captured from scanner. (MonApr 03, 2016 01:00 ADEA) *SUPPLY CHARGE SHEET: Image captured from scanner. (MonApr 03, 2016 01:01 ADEA) ADMIN DIGITAL SIGNATURE: MD Estrada Lloyd. (MonApr 03, 2016 00:46 LLDO) JATINDER Murray Andrea. (MonApr 03, 2016 00:53 ADEA) JATINDER Murray Andrea. (MonApr 03, 2016 00:53 ADEA) MD Estrada Lloyd. (MonApr 03, 2016 01:05 LLDO) RESULTS RADIOLOGY: XR Chest 1 View Portable Observe DT: [facility] Apr 02, 2016 22:38, CXRP PORTABLE CHEST 1 VIEW: Date: 04/02/16 Time: 2242 hours HISTORY: Dyspnea. FINDINGS: Comparison made with exam of 02/12/16. &a-1R&a+25V*p+0X*e5425W*c202B*c15G*c2P*p-0X&a-25V&a+1R Name: Barbie Doshi : 1960 F56 MedRec: [id number] AcctNum: [id number] Prepared: MonApr 03, 2016 01:13 by Interface Page 13 of 16 pMD [facility] EMERGENCY RECORD The heart size is enlarged. The lungs are well expanded without confluent areas of consolidation, p neumothorax, dada pulmonary edema, or pleural effusions. There is mild prominence of the pulmonary vascularity. IMPRESSION: Cardiomegaly. POS: [facility] . (23:16 CJEF) LABORATORY: Cardiac Profile w/CKMB & TropI Collection DT: [facility] Apr 02, 2016 22:43, CKMB 1.0 ng/mL, Range (0-6.6), Troponin I Less than 0.010 ng/mL, Range (< 0.028), Reference Range , 0.00 - 0.028 ng/mL Negative 0.029 - 0.29 ng/mL , Indeterminate Greater or Equal to 0.3 ng/mL Strongly suggests [place] , . (23:16 CJ) Magnesium Collection DT: [facility] Apr 02, 2016 22:43, Magnesium 2.0 mg/dL, Range (1.6-2.6), NOTE: Higher values can be expected in females during menses . (23:16 CJEF) CK (CPK) Collection DT: [facility] Apr 02, 2016 22:43, CK (CPK) 63 U/L, Range (29-168). (23:16 CJ) Comprehensive Metabolic Panel Collection DT: [facility] Apr 02, 2016 22:43, Sodium 141 mmol/L, Range (136-145), Potassium 4.3 mmol/L, Range (3.5-5.1), Chloride 106 mmol/L, Range (98-107), *Carbon Dioxide 21 - L mmol/L, Range (22-29), Anion Gap 18 mmol/L, Range (10-20), BUN (Urea Nitrogen) 11 mg/dL, Range (9.8-20.1), Creatinine 1.05 mg/dL, Range (0.6-1.1), Estimated GFR-MDRD 54 , Reference Range for Estimated GFR: Greater than 90, mL/min/1.73 m2 NOTE: The MDRD equation has not been validated for use, with the elderly (over 70 years of age), women, patients with, serious comorbid condition or persons with extremes of body size, muscle, mass, or nutritional status. , Glucose 97 mg/dL, Range (70-105), Calcium 9.6 mg/dL, Range (7.8-10.44), Bilirubin, Total 0.9 mg/dL, Range (0.2-1.2), Protein, Total 7.1 g/dL, Range (6.0-8.3), NOTE: Plasma values are generally 0.3 to 0.5 g/dL higher than serum values, due to the presence of fibrinogen. , Albumin 4.0 g/dL, Range (3.5-5.0), &a-1R&a+25V*p+0X*c7996L*c202B*c15G*c2P*p-0X&a-25V&a+1R Name: Barbie Doshi : 1960 F56 MedRec: [id number] AcctNum: [id number] Prepared: Rica Apr 03, 2016 01:13 by Interface Page 14 of 16 pMD [facility] EMERGENCY RECORD Globulin 3.1 g/dL, Range (2.4-3.5), Alb/Glob Ratio 1.3 g/dL, Range (1.2-2.2), Alkaline Phosphatase 64 U/L, Range (40-150), AST (SGOT) 20 U/L, Range (5-34), ALT (SGPT) 23 U/L, Range (0-55). (23:16 CJ) CBC with Differential Collection DT: [facility] Apr 02, 2016 22:43, *White Blood Cell (WBC) Count 11.4 - H thou/uL, Range (4.8-10.8), Red Blood Cell (RBC) Count 4.64 mill/uL, Range (4.20-5.40), Hemoglobin 14.2 g/dL, Range (12.0-16.0), Hematocrit 42.4 %, Range (36.0-47.0), Mean Corpuscular Volume 91.5 fl, Range (81.0-99.0), Mean Corpuscular Hemoglobin 30.7 pg, Range (27.0-31.0), Mean Corpuscular HGB CONC 33.6 g/dL, Range (32.0-36.0), RBC Distribution Width 12.0 %, Range (11.5-14.5), *Platelet Count 484 - H thou/uL, Range (130-400), Mean Platelet Volume 7.6 fL, Range (7.4-10.4), Neutrophil 47 %, Range (42-75), Lymphocytes 35 %, Range (21-51), Monocytes 8 %, Range (0-10), Eosinophils 9 %, Range (0-10), Basophils 1 %, Range (0-2), *PLT Morphology Comment Appears Increased - , * H . (23:16 CJEF) PTT Collection DT: [facility] Apr 02, 2016 22:43, See comment below , Anticoagulant? NONE Medical Necessity SUSPECT COAGULOPATHY , *PTT 37.7 - H SEC, Range (22.9-36.1). (23:16 CJEF) Protime with INR Collection DT: [facility] Apr 02, 2016 22:43, See comment below , Anticoagulant? NONE Medical Necessity SUSPECT COAGULOPATHY , *Prothrombin Time 20.5 - H SEC, Range (12.0-14.7), INR-International Normal Ratio 1.7 , ATTENTION: READ CAREFULLY , The, recommended therapeutic ranges for oral anticoagulant treatments are: , , Low Intensity: 1.5 - 2.0 Moderate Intensity: 2.0, - 3.0 High Intensity (1): 2.5 - 3.5 High, Intensity (2): 3.0 - 4.0 CRITICAL: >, 4.0 . (23:16 CJEF) B type Natriuretic Peptide Collection DT: [facility] Apr 02, 2016 22:43, *B type Natriuretic Peptide 225.0 - H pg/mL, Range (0-100). &a-1R&a+25V*p+0X*g4718G*c202B*c15G*c2P*p-0X&a-25V&a+1R Name: TicoBarbie Laurence : 1960 F56 MedRec: [id number] AcctNum: [id number] Prepared: Rica Apr 03, 2016 01:13 by Interface Page 15 of 16 pMD [facility] EMERGENCY RECORD (23:26 CJEF) D-Dimer (Quantitative) Collection DT: [facility] Apr 03, 2016 00:45, D-Dimer Test 0.31 *mcg/mL, Range (0.27-0.43), * Reference Range Units: mcg/mL of fibrinogen equivalent, units(FEU) Based upon a retrospective study of [facility] patients in June 2005, a result of Less than 0.44 mcg/mL FEU is, predictive of the absence of a DVT or PE. . (Rica Apr 03, 2016 00:58 ADEA) Eugene: KEVIN=JATINDER Murray, Yash CHANG=JATINDER Vee, Izabela FINN=JATINDER Murray, Carmina LLDO=MD Sean, Marvin &a-1R&a+25V*p+0X*q0325O*c202B*c15G*c2P*p-0X&a-25V&a+1R Name: Barbie Doshi : 1960 F56 MedRec: [id number] AcctNum: [id number] Prepared: Rica Apr 03, 2016 01:13 by Interface Page 16 of 16 pMD [facility]
== END 2016-04-03 01:00 | disposition short-term general hospital (02) ==
LOC: MADERS 22:23
DX: I20.0 Unstable angina (principal); I11.0 Hypertensive heart disease with heart failure; I50.9 Heart failure, unspecified; J44.9 Chronic obstructive pulmonary disease, unspecified; I48.91 Unspecified atrial fibrillation; Z79.82 Long term (current) use of aspirin
CPT/HCPCS: 71010; 80053; 82550; 82553; 83735; 83880; 84484; 85025; 85379; 85610; 85730; 93005; 94640; 96374; 96375; J1100; J1170; J2930; J7620

== ENCOUNTER 2016-08-29 08:17 | Outpatient (CLI) | payer MEDICARE ==
[2016-08-29 09:05] LABS: INR-International Normal Ratio 2.8; Prothrombin Time 29.3 SEC (12.0-14.7)
== END 2016-08-29 08:18 | disposition home or self-care (01) ==
LOC: MADLABBHPM 08:17
PROVIDERS: ATTEND Family Medicine
DX: I48.91 Unspecified atrial fibrillation (principal)
CPT/HCPCS: 36415; 85610

== ENCOUNTER 2016-11-15 10:42 | Outpatient (CLI) | payer MEDICARE ==
[2016-11-15 11:12] LABS: Prothrombin Time 32.7 SEC (12.0-14.7)
== END 2016-11-15 10:43 | disposition home or self-care (01) ==
LOC: MADLABBHPM 10:42
PROVIDERS: ATTEND Family Medicine
DX: Z51.81 Encounter for therapeutic drug level monitoring (principal); I48.91 Unspecified atrial fibrillation; Z79.01 Long term (current) use of anticoagulants
CPT/HCPCS: 36415; 85610

== ENCOUNTER 2016-11-24 21:32 | Emergency (ER) | payer MEDICARE ==
--- NOTE | 2016-11-24 22:25 | RAD ---
THREE VIEWS LEFT SHOULDER 11/24/16 HISTORY: Shoulder pain for two days after falling off back porch. FINDINGS: There is deformity involving the left scapula, but this was also seen on chest x-ray on 04/02/16 as we ll as on a chest x-ray of 02/12/16 and may be related to remove fracture and deformity of the left s capula. No definite acute fracture or dislocation is seen. Coracoclavicular and acromioclavicular di stances are within normal limits. Remote left lateral third rib fracture is again seen. Vascular patrcie cification seen in the thoracic aorta. IMPRESSION: 1. Deformity involving the left scapula, but this was seen on prior studies including a chest x -ray on 02/12/16 suggesting deformity from more remote fracture of the left scapula. 2. No acute fracture or dislocation is seen involving the left shoulder. 3. Remote fracture involving the left lateral third rib. POS: [facility]
--- NOTE | 2016-11-24 22:27 | RAD ---
TWO VIEWS LEFT CLAVICLE 11/24/16 HISTORY: Shoulder pain for two days after falling off back porch. FINDINGS/IMPRESSION: No acute fracture seen involving the left clavicle. The acromioclavicular and coracoclavicular dista nces are within normal limits. There is deformity involving the left scapula which was noted on prior chest x-rays including studie s on 04/02/16 and 02/12/16 suggesting remote fracture and deformity of the left scapula. POS: [facility]
[2016-11-24] MEDS ORDERED: Diazepam 5 MG TAB ONE (22:29)
[2016-11-24] MEDS ORDERED: Dexamethasone 4 MG TAB ONE (22:29)
[2016-11-24] MEDS ORDERED: HYDROcodone/Acetaminophen 10/325 mg Tablet ONE (22:29)
--- NOTE | 2016-11-24 22:29 | RAD ---
TWO VIEWS LEFT HUMERUS: 11/24/16 HISTORY: Left shoulder pain for two days after falling off back porch. FINDINGS/IMPRESSION: No acute fracture seen involving the left humerus. There is deformity of the left scapula which was described on views of the left shoulder and is likely related to remote fracture and deformity. Ther e is a remote fracture involving the anterior left second and lateral left third ribs. POS: [facility]
== END 2016-11-24 22:41 | disposition home or self-care (01) ==
LOC: MADERS 21:32
DX: S40.012A Contusion of left shoulder, initial encounter (principal); E78.5 Hyperlipidemia, unspecified; J45.909 Unspecified asthma, uncomplicated; I50.9 Heart failure, unspecified; I11.0 Hypertensive heart disease with heart failure; I48.91 Unspecified atrial fibrillation; I25.2 Old myocardial infarction; M19.90 Unspecified osteoarthritis, unspecified site; Z79.82 Long term (current) use of aspirin; Z79.899 Other long term (current) drug therapy; W18.30XA Fall on same level, unspecified, initial encounter
CPT/HCPCS: J8540

== ENCOUNTER 2016-12-02 10:07 | Outpatient (CLI) | payer MEDICARE ==
[2016-12-02 10:30] LABS: INR-International Normal Ratio 2.8; Prothrombin Time 30.6 SEC (12.0-14.7)
== END 2016-12-02 10:08 | disposition home or self-care (01) ==
LOC: MADLABBHPM 10:07
PROVIDERS: ATTEND Family Medicine
DX: Z51.81 Encounter for therapeutic drug level monitoring (principal); Z79.01 Long term (current) use of anticoagulants
CPT/HCPCS: 36415; 85610

== ENCOUNTER 2016-12-08 08:14 | Outpatient (CLI) | payer MEDICARE ==
[2016-12-08 08:31] LABS: INR-International Normal Ratio 2.7; Prothrombin Time 29.7 SEC (12.0-14.7)
== END 2016-12-08 08:15 | disposition home or self-care (01) ==
LOC: MADLABBHPM 08:14
PROVIDERS: ATTEND Family Medicine
DX: Z51.81 Encounter for therapeutic drug level monitoring (principal); Z79.01 Long term (current) use of anticoagulants
CPT/HCPCS: 36415; 85610

== ENCOUNTER 2017-01-05 10:58 | Outpatient (CLI) | payer MEDICARE ==
[2017-01-05 11:35] LABS: INR-International Normal Ratio 3.2; Prothrombin Time 33.9 SEC (12.0-14.7)
== END 2017-01-05 10:59 | disposition home or self-care (01) ==
LOC: MADLABBHPM 10:58
PROVIDERS: ATTEND Family Medicine
DX: Z51.81 Encounter for therapeutic drug level monitoring (principal); Z79.01 Long term (current) use of anticoagulants
CPT/HCPCS: 36415; 85610

== ENCOUNTER 2017-01-12 09:12 | Outpatient (CLI) | payer MEDICARE ==
[2017-01-12 09:38] LABS: INR-International Normal Ratio 2.4; Prothrombin Time 26.7 SEC (12.0-14.7)
== END 2017-01-12 09:13 | disposition home or self-care (01) ==
LOC: MADLABBHPM 09:12
PROVIDERS: ATTEND Family Medicine
DX: Z51.81 Encounter for therapeutic drug level monitoring (principal); Z79.01 Long term (current) use of anticoagulants
CPT/HCPCS: 36415; 85610

== ENCOUNTER 2017-02-11 19:06 | Emergency (ER) | payer MEDICARE ==
[2017-02-11 19:40] LABS: INR-International Normal Ratio 3.3; PTT 64.6 SEC (22.9-36.1); Prothrombin Time 34.8 SEC (12.0-14.7)
--- NOTE | 2017-02-11 19:48 | RAD ---
RADIOGRAPH CHEST 2 VIEWS: 02/11/17 HISTORY: 57-year-old female with chest pain. FINDINGS: There is cardiomegaly. There is no evidence of air space density, pulmonary edema, or pneumothorax. T here is no pleural effusion. IMPRESSION: 1) No acute pulmonary findings. 2) Cardiomegaly without congestive heart failure. juma [] POS: [facility]
[2017-02-11 19:49] LABS: #Basophils 0.2 thou/uL (0.0-0.2); #Eosinphils 0.7 thou/uL (0.0-0.7); #Lymphocytes 2.6 thou/uL (1.20-3.40); #Monocytes 0.9 thou/uL (0.11-0.59); #Neutrophils 5.6 thou/uL (1.40-6.50); %Basophils 1.7 % (0.0-1.0); %Eosinophils 6.9 % (0.0-10.0); %Lymphocytes 25.6 % (21.0-51.0); %Monocytes 9.4 % (0.0-10.0); %Neutrophils 56.5 % (42.0-75.0); Hemoglobin 13.6 g/dL (12.0-16.0); Mean Corpuscular HGB CONC 32.7 g/dL (32.0-36.0); Mean Corpuscular Hemoglobin 31.1 pg (27.0-31.0); Mean Corpuscular Volume 95.3 fl (81.0-99.0); Mean Platelet Volume 7.6 fL (7.4-10.4); Platelet Count 416 thou/uL (130-400); RBC Distribution Width 12.1 % (11.5-14.5); Red Blood Cell (RBC) Count 4.36 mill/uL (4.20-5.40); White Blood Cell (WBC) Count 9.9 thou/uL (4.8-10.8)
[2017-02-11 19:50] LABS: ALT (SGPT) 21 U/L (8-55); AST (SGOT) 24 U/L (5-34); Albumin 4.2 g/dL (3.5-5.0); Alkaline Phosphatase 63 U/L (40-150); Anion Gap 18 mmol/L (10-20); BUN (Urea Nitrogen) 14 mg/dL (9.8-20.1); Bilirubin, Total 0.8 mg/dL (0.2-1.2); CK (CPK) 204 U/L (29-168); Calc. Creatinine Clearance 0 mL/min (70-130); Calcium 9.8 mg/dL (7.8-10.44); Carbon Dioxide 23 mmol/L (22-29); Chloride 105 mmol/L (98-107); Estimated GFR-MDRD 57; Globulin 3.8 g/dL (2.4-3.5); Glucose 93 mg/dL (70-105); Potassium 3.5 mmol/L (3.5-5.1); Sodium 142 mmol/L (136-145)
[2017-02-11 19:53] LABS: CKMB 1.8 ng/mL (0-6.6); Troponin I Less than 0.010 ng/mL (< 0.028)
== END 2017-02-11 23:48 | disposition home or self-care (01) ==
LOC: MADERS 19:06
DX: R07.89 Other chest pain (principal); I48.91 Unspecified atrial fibrillation; E78.5 Hyperlipidemia, unspecified; I11.0 Hypertensive heart disease with heart failure; I50.9 Heart failure, unspecified; J45.909 Unspecified asthma, uncomplicated; M19.90 Unspecified osteoarthritis, unspecified site; Z79.82 Long term (current) use of aspirin; Z79.891 Long term (current) use of opiate analgesic; Z79.01 Long term (current) use of anticoagulants; Z79.899 Other long term (current) drug therapy
CPT/HCPCS: 71020; 80053; 82553; 83880; 84484; 85025; 85610; 85730; 93005; 94760

== ENCOUNTER 2017-02-13 10:21 | Outpatient (CLI) | payer MEDICARE ==
[2017-02-13 10:47] LABS: INR-International Normal Ratio 2.5; Prothrombin Time 27.8 SEC (12.0-14.7)
== END 2017-02-13 10:22 | disposition home or self-care (01) ==
LOC: MADLAB 10:21
PROVIDERS: ATTEND Family Medicine
DX: Z51.81 Encounter for therapeutic drug level monitoring (principal); Z79.01 Long term (current) use of anticoagulants
CPT/HCPCS: 36415; 85610

== ENCOUNTER 2017-02-22 09:30 | Outpatient (CLI) | payer MEDICARE ==
[2017-02-22 10:21] LABS: INR-International Normal Ratio 2.3
== END 2017-02-22 09:31 | disposition home or self-care (01) ==
LOC: MADLABBHPM 09:30
PROVIDERS: ATTEND Family Medicine
DX: Z51.81 Encounter for therapeutic drug level monitoring (principal); Z79.01 Long term (current) use of anticoagulants
CPT/HCPCS: 36415; 85610

== ENCOUNTER 2017-03-01 09:16 | Outpatient (CLI) | payer MEDICARE ==
[2017-03-01 09:42] LABS: INR-International Normal Ratio 2.6
== END 2017-03-01 09:17 | disposition home or self-care (01) ==
LOC: MADLABBHPM 09:16
PROVIDERS: ATTEND Family Medicine
DX: Z51.81 Encounter for therapeutic drug level monitoring (principal); Z79.01 Long term (current) use of anticoagulants
CPT/HCPCS: 36415; 85610

== ENCOUNTER 2017-03-28 09:06 | Outpatient (CLI) | payer MEDICARE ==
[2017-03-28 10:43] LABS: INR-International Normal Ratio 3.4; Prothrombin Time 35.9 SEC (12.0-14.7)
== END 2017-03-28 09:07 | disposition home or self-care (01) ==
LOC: MADLABBHPM 09:06
PROVIDERS: ATTEND Family Medicine
DX: Z51.81 Encounter for therapeutic drug level monitoring (principal); Z79.01 Long term (current) use of anticoagulants
CPT/HCPCS: 36415; 85610

== ENCOUNTER 2017-04-05 08:43 | Outpatient (CLI) | payer MEDICARE ==
[2017-04-05 09:51] LABS: INR-International Normal Ratio 1.8; Prothrombin Time 21.7 SEC (12.0-14.7)
== END 2017-04-05 08:44 | disposition home or self-care (01) ==
LOC: MADLABBHPM 08:43
PROVIDERS: ATTEND Family Medicine
DX: Z51.81 Encounter for therapeutic drug level monitoring (principal); Z79.01 Long term (current) use of anticoagulants
CPT/HCPCS: 36415; 85610

== ENCOUNTER 2017-04-21 09:49 | Outpatient (CLI) | payer MEDICARE ==
[2017-04-21 10:25] LABS: INR-International Normal Ratio 1.5; Prothrombin Time 18.2 SEC (12.0-14.7)
== END 2017-04-21 09:50 | disposition home or self-care (01) ==
LOC: MADLAB 09:49
PROVIDERS: ATTEND Family Medicine
DX: Z51.81 Encounter for therapeutic drug level monitoring (principal); Z79.01 Long term (current) use of anticoagulants
CPT/HCPCS: 36415; 85610

== ENCOUNTER 2017-05-01 10:39 | Outpatient (CLI) | payer MEDICARE ==
[2017-05-01 11:06] LABS: INR-International Normal Ratio 2.3; Prothrombin Time 25.8 SEC (12.0-14.7)
== END 2017-05-01 10:40 | disposition home or self-care (01) ==
LOC: MADLABBHPM 10:39
PROVIDERS: ATTEND Family Medicine
DX: Z51.81 Encounter for therapeutic drug level monitoring (principal); Z79.01 Long term (current) use of anticoagulants
CPT/HCPCS: 36415; 85610

== ENCOUNTER 2017-05-16 08:41 | Outpatient (CLI) | payer MEDICARE ==
[2017-05-16 09:13] LABS: INR-International Normal Ratio 2.8; Prothrombin Time 30.6 SEC (12.0-14.7)
== END 2017-05-16 08:42 | disposition home or self-care (01) ==
LOC: MADLABBHPM 08:41
PROVIDERS: ATTEND Family Medicine
DX: Z51.81 Encounter for therapeutic drug level monitoring (principal); Z79.01 Long term (current) use of anticoagulants
CPT/HCPCS: 36415; 85610

== ENCOUNTER 2017-06-08 08:34 | Outpatient (CLI) | payer MEDICARE ==
[2017-06-08 09:12] LABS: Prothrombin Time 33.7 SEC (12.0-14.7)
[2017-06-08 09:13] LABS: INR-International Normal Ratio 3.1
[2017-06-08 09:17] LABS: ALT (SGPT) 25 U/L (8-55); AST (SGOT) 24 U/L (5-34); Albumin 4.1 g/dL (3.5-5.0); Alkaline Phosphatase 53 U/L (40-150); Anion Gap 13 mmol/L (10-20); BUN (Urea Nitrogen) 18 mg/dL (9.8-20.1); Bilirubin, Total 1.4 mg/dL (0.2-1.2); Calc. Creatinine Clearance 0 mL/min (70-130); Carbon Dioxide 28 mmol/L (22-29); Chloride 107 mmol/L (98-107); Estimated GFR-MDRD 51; Globulin 3.2 g/dL (2.4-3.5); Glucose 94 mg/dL (70-105); Potassium 4.5 mmol/L (3.5-5.1); Protein, Total 7.3 g/dL (6.0-8.3); Sodium 143 mmol/L (136-145)
[2017-06-08 09:23] LABS: #Basophils 0.2 thou/uL (0.0-0.2); #Eosinphils 1.2 thou/uL (0.0-0.7); #Lymphocytes 2.5 thou/uL (1.20-3.40); #Monocytes 0.8 thou/uL (0.11-0.59); #Neutrophils 4.8 thou/uL (1.40-6.50); %Basophils 2.5 % (0.0-1.0); %Eosinophils 12.4 % (0.0-10.0); %Lymphocytes 26.1 % (21.0-51.0); %Monocytes 8.4 % (0.0-10.0); %Neutrophils 50.6 % (42.0-75.0); Hemoglobin 14.3 g/dL (12.0-16.0); Mean Corpuscular HGB CONC 33.7 g/dL (32.0-36.0); Mean Corpuscular Hemoglobin 30.1 pg (27.0-31.0); Mean Corpuscular Volume 89.3 fl (81.0-99.0); Mean Platelet Volume 7.9 fL (7.4-10.4); Platelet Count 345 thou/uL (130-400); RBC Distribution Width 13.3 % (11.5-14.5); Red Blood Cell (RBC) Count 4.73 mill/uL (4.20-5.40); White Blood Cell (WBC) Count 9.5 thou/uL (4.8-10.8)
== END 2017-06-08 08:35 | disposition home or self-care (01) ==
LOC: MADLABBHPM 08:34
PROVIDERS: ATTEND Internal Medicine Cardiovascular Disease
DX: I48.0 Paroxysmal atrial fibrillation (principal)
CPT/HCPCS: 36415; 80053; 84443; 85025; 85610

== ENCOUNTER 2017-06-19 09:45 | Outpatient (CLI) | payer MEDICARE ==
[2017-06-19 11:03] LABS: INR-International Normal Ratio 2.9
[2017-06-19 11:29] LABS: Thyroid Stimulating Hormone 4.6505 uIU/mL (0.35-4.94)
[2017-06-19 18:04] LABS: Free T4 (Free Thyroxine) 0.93 ng/dL (0.70-1.48)
[2017-06-21 15:08] LABS: EliA Thy New Method **** NEW METHOD ****
== END 2017-06-19 09:46 | disposition home or self-care (01) ==
LOC: MADLAB 09:45
PROVIDERS: ATTEND Family Medicine
DX: Z51.81 Encounter for therapeutic drug level monitoring (principal); R94.6 Abnormal results of thyroid function studies; Z79.01 Long term (current) use of anticoagulants
CPT/HCPCS: 36415; 84439; 84443; 85610; 86376; 86800

== ENCOUNTER 2017-07-10 08:45 | Outpatient (CLI) | payer MEDICARE ==
[2017-07-10 09:02] LABS: INR-International Normal Ratio 2.4; Prothrombin Time 27.4 SEC (12.0-14.7)
== END 2017-07-10 08:46 | disposition home or self-care (01) ==
LOC: MADLABBHPM 08:45
PROVIDERS: ATTEND Family Medicine
DX: Z51.81 Encounter for therapeutic drug level monitoring (principal); Z79.01 Long term (current) use of anticoagulants
CPT/HCPCS: 36415; 85610

== ENCOUNTER 2017-07-21 12:06 | Outpatient (CLI) | payer MEDICARE ==
--- NOTE | 2017-07-21 12:48 | RAD ---
TWO VIEWS RIGHT WRIST: Date: 07-21-17 Provided Clinical History: Wrist pain. FINDINGS: No evidence for fracture or other acute osseous abnormality. Mild degenerative changes of the STT salbador nt. Alignment appears anatomic. Joint spaces appear otherwise preserved. IMPRESSION: STT degenerative change. POS: [facility]
--- NOTE | 2017-07-21 12:49 | RAD ---
LEFT WRIST RADIOGRAPHS TWO VIEWS: Date: 07-21-17 Provided Clinical History: Wrist pain. FINDINGS: First CMC and STT joint degenerative changes are seen. Alignment appears anatomic. Joint spaces appea r otherwise preserved. NO evidence for fracture or other acute osseous abnormality. IMPRESSION: First CMC and STT joint degenerative change. POS: [facility]
--- NOTE | 2017-07-21 13:12 | RAD ---
RIGHT HAND RADIOGRAPHS THREE VIEWS: Date: 07-21-17 Provided Clinical History: Right thumb pain. FINDINGS: Degenerative changes are seen involving the thumb IP joint. No evidence for fracture or other acute o sseous abnormality. Alignment appears anatomic. Joint spaces appear otherwise preserved. IMPRESSION: Degenerative changes are seen involving the thumb IP joint. POS: [facility]
--- NOTE | 2017-07-21 14:06 | RAD ---
LEFT SHOULDER RADIOGRAPHS 3 VIEWS: DATE: 07/21/17. PROVIDED CLINICAL HISTORY: Left shoulder pain. FINDINGS: Comparison is made with the study dated 11/24/16. Marked deformity of the left scapula compatible wit h sequelae of remote fracture is again demonstrated. Fracture fragment are not in anatomic alignment . Visualized left lung field appears clear. The glenohumeral relationship appears normal. The suba cromial space appears preserved. IMPRESSION: Remote fracture of the left scapula with malunion. POS: [facility]
== END 2017-07-21 12:07 | disposition home or self-care (01) ==
LOC: MADRAD 12:06
PROVIDERS: ATTEND Family Medicine
DX: M25.512 Pain in left shoulder (principal); G89.29 Other chronic pain; M25.531 Pain in right wrist; M25.532 Pain in left wrist; M79.644 Pain in right finger(s); Z51.81 Encounter for therapeutic drug level monitoring; Z79.01 Long term (current) use of anticoagulants

== ENCOUNTER 2017-08-07 13:16 | Outpatient (CLI) | payer MEDICARE ==
[2017-08-07 13:43] LABS: #Basophils 0.3 thou/uL (0.0-0.2); #Eosinphils 0.7 thou/uL (0.0-0.7); #Lymphocytes 2.1 thou/uL (1.20-3.40); #Monocytes 0.9 thou/uL (0.11-0.59); #Neutrophils 7.2 thou/uL (1.40-6.50); %Basophils 2.3 % (0.0-1.0); %Eosinophils 6.6 % (0.0-10.0); %Lymphocytes 18.9 % (21.0-51.0); %Neutrophils 64.3 % (42.0-75.0); Mean Corpuscular HGB CONC 32.5 g/dL (32.0-36.0); Mean Corpuscular Hemoglobin 30.2 pg (27.0-31.0); Mean Corpuscular Volume 92.8 fl (81.0-99.0); Mean Platelet Volume 7.9 fL (7.4-10.4); Platelet Count 376 thou/uL (130-400); RBC Distribution Width 13.1 % (11.5-14.5); Red Blood Cell (RBC) Count 4.31 mill/uL (4.20-5.40); White Blood Cell (WBC) Count 11.2 thou/uL (4.8-10.8)
[2017-08-07 13:46] LABS: INR-International Normal Ratio 2.3; Prothrombin Time 26.1 SEC (12.0-14.7)
[2017-08-07 13:56] LABS: ALT (SGPT) 20 U/L (8-55); AST (SGOT) 21 U/L (5-34); Alkaline Phosphatase 57 U/L (40-150); Anion Gap 15 mmol/L (10-20); BUN (Urea Nitrogen) 16 mg/dL (9.8-20.1); Bilirubin, Total 1.1 mg/dL (0.2-1.2); Calc. Creatinine Clearance 0 mL/min (70-130); Calcium 9.6 mg/dL (7.8-10.44); Carbon Dioxide 25 mmol/L (22-29); Cardiac Risk 3.7 (Less than 4.5); Chloride 103 mmol/L (98-107); Cholesterol 176 mg/dl (< 200 Desired); Estimated GFR-MDRD 57; Globulin 3.3 g/dL (2.4-3.5); Glucose 87 mg/dL (70-105); HDL Cholesterol 48 mg/dL (>60 Neg Risk); LDL Cholesterol, Calculated 107 mg/dL; Potassium 4.4 mmol/L (3.5-5.1); Protein, Total 7.3 g/dL (6.0-8.3); Sodium 139 mmol/L (136-145); Triglycerides 104 mg/dL (Less than 150)
== END 2017-08-07 13:17 | disposition home or self-care (01) ==
LOC: MADLABBHPM 13:16
PROVIDERS: ATTEND Family Medicine
DX: I12.9 Hypertensive chronic kidney disease with stage 1 through stage 4 chronic kidney disease, or unspecified chronic kidney disease (principal); N18.2 Chronic kidney disease, stage 2 (mild); E78.5 Hyperlipidemia, unspecified; R94.6 Abnormal results of thyroid function studies
CPT/HCPCS: 36415; 80053; 80061; 84443; 85025; 85610

== ENCOUNTER 2017-09-12 08:15 | Outpatient (CLI) | payer MEDICARE ==
[2017-09-12 08:41] LABS: Prothrombin Time 31.5 SEC (12.0-14.7)
== END 2017-09-12 08:16 | disposition home or self-care (01) ==
LOC: MADLABBHPM 08:15
PROVIDERS: ATTEND Family Medicine
DX: Z51.81 Encounter for therapeutic drug level monitoring (principal); I48.91 Unspecified atrial fibrillation; Z79.01 Long term (current) use of anticoagulants
CPT/HCPCS: 36415; 85610

== ENCOUNTER 2017-09-20 10:34 | Outpatient (CLI) | payer MEDICARE ==
[2017-09-20 11:20] LABS: INR-International Normal Ratio 3.5
== END 2017-09-20 10:35 | disposition home or self-care (01) ==
LOC: MADLABBHPM 10:34
PROVIDERS: ATTEND Family Medicine
DX: I48.91 Unspecified atrial fibrillation (principal); Z79.01 Long term (current) use of anticoagulants
CPT/HCPCS: 36415; 85610

== ENCOUNTER 2017-09-22 08:50 | Outpatient (CLI) | payer MEDICARE ==
[2017-09-22 10:34] LABS: INR-International Normal Ratio 2.3; Prothrombin Time 25.5 SEC (12.0-14.7)
== END 2017-09-22 08:51 | disposition home or self-care (01) ==
LOC: MADLABBHPM 08:50
PROVIDERS: ATTEND Family Medicine
DX: I48.91 Unspecified atrial fibrillation (principal); Z79.01 Long term (current) use of anticoagulants
CPT/HCPCS: 36415; 85610

== ENCOUNTER 2017-09-28 09:21 | Outpatient (CLI) | payer MEDICARE ==
[2017-09-28 10:05] LABS: INR-International Normal Ratio 1.8; Prothrombin Time 21.2 SEC (12.0-14.7)
== END 2017-09-28 09:22 | disposition home or self-care (01) ==
LOC: MADLABBHPM 09:21
PROVIDERS: ATTEND Family Medicine
DX: Z51.81 Encounter for therapeutic drug level monitoring (principal); I48.91 Unspecified atrial fibrillation; Z79.01 Long term (current) use of anticoagulants
CPT/HCPCS: 36415; 85610

== ENCOUNTER 2017-10-12 10:18 | Outpatient (CLI) | payer MEDICARE ==
[2017-10-12 10:57] LABS: Prothrombin Time 23.1 SEC (12.0-14.7)
== END 2017-10-12 10:19 | disposition home or self-care (01) ==
LOC: MADLAB 10:18
PROVIDERS: ATTEND Family Medicine
DX: Z51.81 Encounter for therapeutic drug level monitoring (principal); I48.91 Unspecified atrial fibrillation; Z79.01 Long term (current) use of anticoagulants
CPT/HCPCS: 36415; 85610

== ENCOUNTER 2017-11-07 13:45 | Outpatient (CLI) | payer MEDICARE ==
[2017-11-07 13:54] LABS: Anion Gap 13 mmol/L (10-20); BUN (Urea Nitrogen) 14 mg/dL (9.8-20.1); Calc. Creatinine Clearance 0 mL/min (70-130); Carbon Dioxide 25 mmol/L (22-29); Chloride 106 mmol/L (98-107); Estimated GFR-MDRD 53; Potassium 3.9 mmol/L (3.5-5.1); Sodium 140 mmol/L (136-145)
[2017-11-07 13:55] LABS: ALT (SGPT) 24 U/L (8-55); AST (SGOT) 23 U/L (5-34); Albumin 4.3 g/dL (3.5-5.0); Alkaline Phosphatase 69 U/L (40-150); Bilirubin, Total 1.3 mg/dL (0.2-1.2); Calcium 9.7 mg/dL (7.8-10.44); Globulin 3.5 g/dL (2.4-3.5); Glucose 104 mg/dL (70-105); Protein, Total 7.8 g/dL (6.0-8.3)
[2017-11-07 14:21] LABS: Hemoglobin 13.9 g/dL (12.0-16.0); Manual Diff?? NO; Mean Corpuscular HGB CONC 33.5 g/dL (32.0-36.0); Mean Corpuscular Hemoglobin 31.4 pg (27.0-31.0); Mean Corpuscular Volume 93.6 fL (78.0-98.0); Mean Platelet Volume 7.8 fL (7.4-10.4); Platelet Count 399 thou/uL (130-400); RBC Distribution Width 12.7 % (11.5-14.5); Red Blood Cell (RBC) Count 4.43 mill/uL (4.20-5.40); White Blood Cell (WBC) Count 10.6 thou/uL (4.8-10.8)
[2017-11-07 14:22] LABS: #Basophils 0.2 thou/uL (0.0-0.2); #Eosinphils 0.5 thou/uL (0.0-0.7); #Monocytes 0.8 thou/uL (0.11-0.59); #Neutrophils 7.1 thou/uL (1.40-6.50); %Basophils 1.8 % (0.0-1.0); %Eosinophils 4.5 % (0.0-10.0); %Lymphocytes 19.9 % (21.0-51.0); %Neutrophils 66.7 % (42.0-75.0); MDiff Complete? YES
== END 2017-11-07 13:46 | disposition home or self-care (01) ==
LOC: MADLABBHPM 13:45
PROVIDERS: ATTEND Family Medicine
DX: I12.9 Hypertensive chronic kidney disease with stage 1 through stage 4 chronic kidney disease, or unspecified chronic kidney disease (principal); N18.2 Chronic kidney disease, stage 2 (mild); I48.91 Unspecified atrial fibrillation; R94.6 Abnormal results of thyroid function studies; Z79.01 Long term (current) use of anticoagulants
CPT/HCPCS: 36415; 80053; 84443; 85025; 85610

== ENCOUNTER 2017-12-07 08:31 | Outpatient (CLI) | payer MEDICARE ==
[2017-12-07 09:01] LABS: INR-International Normal Ratio 1.7
== END 2017-12-07 08:32 | disposition home or self-care (01) ==
LOC: MADLABBHPM 08:31
PROVIDERS: ATTEND Family Medicine
DX: I48.91 Unspecified atrial fibrillation (principal); R94.6 Abnormal results of thyroid function studies
CPT/HCPCS: 36415; 84439; 84443; 84445; 85610; 86376

== ENCOUNTER 2017-12-13 11:26 | Outpatient (CLI) | payer MEDICARE ==
[2017-12-13 11:59] LABS: INR-International Normal Ratio 1.2; Prothrombin Time 15.2 SEC (12.0-14.7)
[2017-12-13 12:11] LABS: ALT (SGPT) 20 U/L (8-55); AST (SGOT) 19 U/L (5-34); Albumin 3.9 g/dL (3.5-5.0); Alkaline Phosphatase 65 U/L (40-150); Anion Gap 12 mmol/L (10-20); BUN (Urea Nitrogen) 22 mg/dL (9.8-20.1); Calc. Creatinine Clearance 0 mL/min (70-130); Calcium 9.5 mg/dL (7.8-10.44); Carbon Dioxide 26 mmol/L (22-29); Cardiac Risk 2.7 (Less than 4.5); Chloride 110 mmol/L (98-107); Cholesterol 137 mg/dl (< 200 Desired); Estimated GFR-MDRD 65; Globulin 3.5 g/dL (2.4-3.5); Glucose 96 mg/dL (70-105); HDL Cholesterol 51 mg/dL (>60 Neg Risk); LDL Cholesterol, Calculated 71 mg/dL; Potassium 4.1 mmol/L (3.5-5.1); Protein, Total 7.4 g/dL (6.0-8.3); Sodium 144 mmol/L (136-145); Triglycerides 75 mg/dL (Less than 150)
[2017-12-13 12:27] LABS: Hemoglobin 12.8 g/dL (12.0-16.0); Mean Corpuscular HGB CONC 32.9 g/dL (32.0-36.0); Mean Corpuscular Hemoglobin 31.1 pg (27.0-31.0); Mean Corpuscular Volume 94.7 fL (78.0-98.0); Mean Platelet Volume 7.8 fL (7.4-10.4); Platelet Count 410 thou/uL (130-400); RBC Distribution Width 13.3 % (11.5-14.5); Red Blood Cell (RBC) Count 4.12 mill/uL (4.20-5.40); White Blood Cell (WBC) Count 11.7 thou/uL (4.8-10.8)
[2017-12-13 12:47] LABS: MDiff Complete? YES
[2017-12-13 12:48] LABS: Eosinophils 1 % (0-10); Lymphocytes 20 % (21-51); Monocytes 5 % (0-10); Neutrophil 74 % (42-75); PLT Morphology Comment Appears Increased
== END 2017-12-13 11:27 ==
LOC: MADLABBHPM 11:26
PROVIDERS: ATTEND Internal Medicine Cardiovascular Disease
DX: Z51.81 Encounter for therapeutic drug level monitoring (principal); I48.0 Paroxysmal atrial fibrillation; I10 Essential (primary) hypertension; R07.9 Chest pain, unspecified; Z79.01 Long term (current) use of anticoagulants
CPT/HCPCS: 36415; 80053; 80061; 85007; 85027; 85610

== ENCOUNTER 2017-12-21 11:32 | Emergency (ER) | payer MEDICARE ==
[2017-12-21] MEDS ORDERED: methylPREDNISolone Sod Succ/PF 125 MG/2 ML VIAL ONE (11:41)
[2017-12-21 11:50] LABS: #Basophils 0.3 thou/uL (0.0-0.2); #Eosinphils 0.7 thou/uL (0.0-0.7); #Lymphocytes 2.3 thou/uL (1.20-3.40); #Monocytes 1.1 thou/uL (0.11-0.59); #Neutrophils 11.2 thou/uL (1.40-6.50); %Basophils 1.7 % (0.0-1.0); %Eosinophils 4.7 % (0.0-10.0); %Lymphocytes 14.5 % (21.0-51.0); %Monocytes 7.3 % (0.0-10.0); %Neutrophils 71.8 % (42.0-75.0); Hemoglobin 12.5 g/dL (12.0-16.0); Mean Corpuscular HGB CONC 32.6 g/dL (32.0-36.0); Mean Corpuscular Hemoglobin 30.7 pg (27.0-31.0); Mean Corpuscular Volume 94.4 fL (78.0-98.0); Mean Platelet Volume 8.9 fL (7.4-10.4); Platelet Count 403 thou/uL (130-400); RBC Distribution Width 12.8 % (11.5-14.5); Red Blood Cell (RBC) Count 4.08 mill/uL (4.20-5.40); White Blood Cell (WBC) Count 15.5 thou/uL (4.8-10.8)
[2017-12-21 12:00] LABS: INR-International Normal Ratio 1.3; PTT 32.6 SEC (22.9-36.1); Prothrombin Time 16.4 SEC (12.0-14.7)
[2017-12-21 12:07] LABS: ALT (SGPT) 20 U/L (8-55); AST (SGOT) 18 U/L (5-34); Alkaline Phosphatase 66 U/L (40-150); Anion Gap 12 mmol/L (10-20); BUN (Urea Nitrogen) 11 mg/dL (9.8-20.1); Bilirubin, Total 1.4 mg/dL (0.2-1.2); Calc. Creatinine Clearance 0 mL/min (70-130); Calcium 9.5 mg/dL (7.8-10.44); Carbon Dioxide 25 mmol/L (22-29); Chloride 106 mmol/L (98-107); Estimated GFR-MDRD 70; Globulin 3.4 g/dL (2.4-3.5); Glucose 101 mg/dL (70-105); Potassium 3.9 mmol/L (3.5-5.1); Protein, Total 7.4 g/dL (6.0-8.3); Sodium 139 mmol/L (136-145)
[2017-12-21 12:10] LABS: CKMB 1.2 ng/mL (0-6.6); Troponin I Less than 0.010 ng/mL (< 0.028)
--- NOTE | 2017-12-21 12:20 | RAD ---
CHEST 1 VIEW: Date: 12/21/17 HISTORY: Dyspnea. COMPARISON: Radiograph dated 02/26/17. FINDINGS: Heart size is enlarged. Small effusions. Mild edema. No pneumothorax. No acute osseous abnormality. IMPRESSION: Cardiomegaly, small effusions, and mild edema. POS: [facility]
[2017-12-21 12:25] LABS: Bilirubin Negative (Negative); Blood, Urine Trace (Negative); Clarity Clear (Clear); Glucose, Urine (Dipstick) Negative (Negative); Leukocyte Negative (Negative); Nitrite Negative (Negative); Protein, Urine (Dipstick) Negative (Neg-Trace); Urobilinogen 0.2 mg/dL (0.2-1.0)
[2017-12-21 12:27] LABS: Bacteria/HPF Rare-Few HPF (None Seen); RBC/HPF 0-3 HPF (0-3); Squamous Epithelial 0-3 HPF (0-3); WBC/HPF 0-3 HPF (0-3)
[2017-12-21] MEDS ORDERED: Furosemide 40 MG/4 ML VIAL ONE (12:40)
== END 2017-12-21 14:22 | disposition short-term general hospital (02) ==
LOC: MADERS 11:32
DX: I11.0 Hypertensive heart disease with heart failure (principal); I50.9 Heart failure, unspecified; J90 Pleural effusion, not elsewhere classified; I48.91 Unspecified atrial fibrillation; E78.5 Hyperlipidemia, unspecified; I25.2 Old myocardial infarction; J45.909 Unspecified asthma, uncomplicated; Z79.899 Other long term (current) drug therapy; Z79.82 Long term (current) use of aspirin
CPT/HCPCS: 71045; 80053; 81003; 81015; 82553; 83605; 83880; 84484; 85025; 85610; 85730; 87040; 93005; 96374; 96375; J1940; J2930; J7620

== ENCOUNTER 2018-01-11 08:10 | Outpatient (CLI) | payer MEDICARE ==
[2018-01-11 08:33] LABS: INR-International Normal Ratio 2.1; Prothrombin Time 23.3 SEC (12.0-14.7)
== END 2018-01-11 08:11 | disposition home or self-care (01) ==
LOC: MADLABBHPM 08:10
PROVIDERS: ATTEND Family Medicine
DX: Z51.81 Encounter for therapeutic drug level monitoring (principal); I48.91 Unspecified atrial fibrillation; Z79.01 Long term (current) use of anticoagulants
CPT/HCPCS: 36415; 85610

== ENCOUNTER 2018-02-08 08:54 | Outpatient (CLI) | payer MEDICARE ==
[2018-02-08 09:17] LABS: Prothrombin Time 22.3 SEC (12.0-14.7)
== END 2018-02-08 08:55 | disposition home or self-care (01) ==
LOC: MADLABBHPM 08:54
PROVIDERS: ATTEND Family Medicine
DX: E03.9 Hypothyroidism, unspecified (principal); I48.91 Unspecified atrial fibrillation; Z79.01 Long term (current) use of anticoagulants
CPT/HCPCS: 36415; 84443; 85610

== ENCOUNTER 2018-03-13 08:57 | Outpatient (CLI) | payer MEDICARE ==
[2018-03-13 09:17] LABS: INR-International Normal Ratio 2.2; Prothrombin Time 24.1 SEC (12.0-14.7)
== END 2018-03-13 08:58 | disposition home or self-care (01) ==
LOC: MADLABBHPM 08:57
PROVIDERS: ATTEND Family Medicine
DX: Z51.81 Encounter for therapeutic drug level monitoring (principal); I48.91 Unspecified atrial fibrillation; Z79.01 Long term (current) use of anticoagulants
CPT/HCPCS: 36415; 85610

== ENCOUNTER 2018-04-03 09:05 | Outpatient (CLI) | payer MEDICARE ==
[2018-04-03 10:15] LABS: INR-International Normal Ratio 2.2; Prothrombin Time 24.8 SEC (12.0-14.7)
[2018-04-03 17:22] LABS: CRP (Inflammatory) 0.67 mg/dL (= or < 0.5)
== END 2018-04-03 09:06 ==
LOC: MADLABBHPM 09:05
PROVIDERS: ATTEND Family Medicine
DX: M25.50 Pain in unspecified joint (principal); M79.10 Myalgia, unspecified site; M13.0 Polyarthritis, unspecified; E03.9 Hypothyroidism, unspecified
CPT/HCPCS: 36415; 82550; 83520; 84443; 85610; 85652; 86140; 86200

== ENCOUNTER 2018-06-06 08:18 | Outpatient (CLI) | payer MEDICARE ==
[2018-06-06 08:50] LABS: INR-International Normal Ratio 1.8; Prothrombin Time 20.7 SEC (12.0-14.7)
== END 2018-06-06 08:19 | disposition home or self-care (01) ==
LOC: MADLABBHPM 08:18
PROVIDERS: ATTEND Family Medicine
DX: Z51.81 Encounter for therapeutic drug level monitoring (principal); I48.91 Unspecified atrial fibrillation; Z79.01 Long term (current) use of anticoagulants
CPT/HCPCS: 36415; 85610

== ENCOUNTER 2018-07-10 08:56 | Outpatient (CLI) | payer MEDICARE ==
[2018-07-10 09:25] LABS: INR-International Normal Ratio 2.4; Prothrombin Time 25.9 SEC (12.0-14.7)
== END 2018-07-10 08:57 | disposition home or self-care (01) ==
LOC: MADLABBHPM 08:56
PROVIDERS: ATTEND Family Medicine
DX: Z51.81 Encounter for therapeutic drug level monitoring (principal); I48.91 Unspecified atrial fibrillation; Z79.01 Long term (current) use of anticoagulants
CPT/HCPCS: 36415; 85610

== ENCOUNTER 2018-07-30 10:00 | Outpatient (CLI) | payer MEDICARE ==
[2018-07-30 10:17] LABS: #Basophils 0.2 thou/uL (0.0-0.2); #Eosinphils 1.3 thou/uL (0.0-0.7); #Lymphocytes 2.2 thou/uL (1.20-3.40); #Monocytes 0.8 thou/uL (0.11-0.59); #Neutrophils 5.2 thou/uL (1.40-6.50); %Basophils 2.1 % (0.0-1.0); %Eosinophils 13.2 % (0.0-10.0); %Lymphocytes 22.7 % (21.0-51.0); %Monocytes 8.6 % (0.0-10.0); %Neutrophils 53.4 % (42.0-75.0); Hemoglobin 12.9 g/dL (12.0-16.0); Mean Corpuscular HGB CONC 31.6 g/dL (32.0-36.0); Mean Corpuscular Hemoglobin 28.8 pg (27.0-31.0); Platelet Count 398 thou/uL (130-400); RBC Distribution Width 12.7 % (11.5-14.5); Red Blood Cell (RBC) Count 4.48 mill/uL (4.20-5.40); White Blood Cell (WBC) Count 9.7 thou/uL (4.8-10.8)
[2018-07-30 10:26] LABS: INR-International Normal Ratio 3.5; Prothrombin Time 34.9 SEC (12.0-14.7)
[2018-07-30 10:33] LABS: ALT (SGPT) 24 U/L (8-55); AST (SGOT) 21 U/L (5-34); Albumin 3.8 g/dL (3.5-5.0); Alkaline Phosphatase 74 U/L (40-150); Anion Gap 14 mmol/L (10-20); BUN (Urea Nitrogen) 13 mg/dL (9.8-20.1); Bilirubin, Total 1.2 mg/dL (0.2-1.2); Calc. Creatinine Clearance 0 mL/min (70-130); Calcium 9.3 mg/dL (7.8-10.44); Carbon Dioxide 23 mmol/L (22-29); Cardiac Risk 2.3 (Less than 4.5); Chloride 108 mmol/L (98-107); Cholesterol 86 mg/dl (< 200 Desired); Estimated GFR-MDRD 74; Globulin 3.4 g/dL (2.4-3.5); Glucose 109 mg/dL (70-105); HDL Cholesterol 37 mg/dL (>60 Neg Risk); LDL Cholesterol, Calculated 34 mg/dL; Potassium 4.5 mmol/L (3.5-5.1); Protein, Total 7.2 g/dL (6.0-8.3); Sodium 140 mmol/L (136-145); Triglycerides 77 mg/dL (Less than 150)
== END 2018-07-30 10:01 | disposition home or self-care (01) ==
LOC: MADLABBHPM 10:00
PROVIDERS: ATTEND Family Medicine
DX: E03.9 Hypothyroidism, unspecified (principal); E78.5 Hyperlipidemia, unspecified; I10 Essential (primary) hypertension; Z79.899 Other long term (current) drug therapy
CPT/HCPCS: 36415; 80053; 80061; 84443; 85025; 85610

== ENCOUNTER 2018-08-02 11:15 | Outpatient (CLI) | payer MEDICARE | END 2018-08-02 11:16 | disposition home or self-care (01) | LOC: MADEKG 11:15 | PROVIDERS: ATTEND Family Medicine | DX: Z51.81 Encounter for therapeutic drug level monitoring (principal); I48.91 Unspecified atrial fibrillation; Z79.01 Long term (current) use of anticoagulants | CPT/HCPCS: 93005; 93010 ==

== ENCOUNTER 2018-08-02 12:00 | Emergency (ER) | payer MEDICARE ==
[~2018-08-02 12:00] MED LIST changes: -Nitroglycerin 0.4 MG TAB 1 EACH ONE; +Sodium Chloride 0.9% 1,000 ML BAG ONE; +Sodium Chloride 0.9% 100 ML BAG ONE
[2018-08-02 12:58] LABS: #Basophils 0.2 thou/uL (0.0-0.2); #Eosinphils 1.6 thou/uL (0.0-0.7); #Lymphocytes 2.1 thou/uL (1.20-3.40); #Monocytes 0.9 thou/uL (0.11-0.59); #Neutrophils 4.2 thou/uL (1.40-6.50); %Eosinophils 17.6 % (0.0-10.0); %Lymphocytes 23.7 % (21.0-51.0); %Monocytes 9.8 % (0.0-10.0); %Neutrophils 46.9 % (42.0-75.0); Mean Corpuscular HGB CONC 31.8 g/dL (32.0-36.0); Mean Corpuscular Hemoglobin 28.8 pg (27.0-31.0); Mean Corpuscular Volume 90.5 fL (78.0-98.0); Mean Platelet Volume 6.8 fL (7.4-10.4); Platelet Count 375 thou/uL (130-400); RBC Distribution Width 12.7 % (11.5-14.5); Red Blood Cell (RBC) Count 4.49 mill/uL (4.20-5.40)
[2018-08-02 13:18] LABS: ALT (SGPT) 24 U/L (8-55); AST (SGOT) 23 U/L (5-34); Albumin 3.8 g/dL (3.5-5.0); Alkaline Phosphatase 80 U/L (40-150); Anion Gap 13 mmol/L (10-20); BUN (Urea Nitrogen) 15 mg/dL (9.8-20.1); Bilirubin, Total 1.3 mg/dL (0.2-1.2); Calc. Creatinine Clearance 0 mL/min (70-130); Calcium 9.6 mg/dL (7.8-10.44); Carbon Dioxide 26 mmol/L (22-29); Chloride 105 mmol/L (98-107); Estimated GFR-MDRD 68; Globulin 3.3 g/dL (2.4-3.5); Glucose 103 mg/dL (70-105); Potassium 4.2 mmol/L (3.5-5.1); Protein, Total 7.1 g/dL (6.0-8.3); Sodium 140 mmol/L (136-145)
--- NOTE | 2018-08-02 13:23 | RAD ---
RADIOGRAPH CHEST 1 VIEW: Date: 08/02/18 Time: 1246 HOURS HISTORY: 58-year-old female with dyspnea and chest pain. COMPARISON: 12/21/17. FINDINGS: There is cardiomegaly and pulmonary venous engorgement. No consolidation. No air space opacity. No pn eumothorax. Findings are similar to those of the prior study. IMPRESSION: Cardiomegaly and pulmonary venous congestion, suggestive of minimal or mild congestive heart failure. JERRY [] POS: [facility]
[2018-08-02] MEDS ORDERED: Furosemide 20 MG/2 ML VIAL ONE (13:58)
[2018-08-02] MEDS ORDERED: Nitroglycerin 0.4 MG TAB 1 EACH ONE (13:58)
[2018-08-02] MEDS ORDERED: Nitroglycerin 2% Ointment 1 INCH/1 GM Packet ONE (13:58)
[2018-08-02] MEDS ORDERED: Furosemide 40 MG/4 ML VIAL ONE (13:58)
[2018-08-02 14:03] LABS: INR-International Normal Ratio 2.5; Prothrombin Time 27.1 SEC (12.0-14.7)
[2018-08-02] MEDS ORDERED: Diltiazem 125 MG/25 ML ONE (17:04)
[2018-08-02] MEDS ORDERED: Acetaminophen 325 MG TAB ONE (18:11)
== END 2018-08-02 19:00 | disposition short-term general hospital (02) ==
LOC: MADERS 12:00
DX: I11.0 Hypertensive heart disease with heart failure (principal); I50.9 Heart failure, unspecified; I48.91 Unspecified atrial fibrillation; I25.2 Old myocardial infarction; E78.5 Hyperlipidemia, unspecified; M19.90 Unspecified osteoarthritis, unspecified site; J45.909 Unspecified asthma, uncomplicated; Z79.82 Long term (current) use of aspirin; Z79.899 Other long term (current) drug therapy; Z79.01 Long term (current) use of anticoagulants; Z79.811 Long term (current) use of aromatase inhibitors
CPT/HCPCS: 71045; 80053; 83880; 84484; 85025; 85610; 93005; 93010; 96365; 96366; 96375; 96376; J1940; J3490; J7050

== ENCOUNTER 2018-09-03 09:58 | Outpatient (CLI) | payer MEDICARE ==
[2018-09-03 10:54] LABS: INR-International Normal Ratio 2.5; Prothrombin Time 26.7 SEC (12.0-14.7)
== END 2018-09-03 09:59 | disposition home or self-care (01) ==
LOC: MADLABBHPM 09:58
PROVIDERS: ATTEND Family Medicine
DX: E03.9 Hypothyroidism, unspecified (principal)
CPT/HCPCS: 36415; 84443; 85610

== ENCOUNTER 2018-09-05 10:41 | Emergency (ER) | payer MEDICARE ==
[2018-09-05] MEDS ORDERED: HYDROcodone/Acetaminophen 5/325 mg Tablet ONE (11:33)
[2018-09-05] MEDS ORDERED: Penicillin V Potassium 250 MG TAB ONE (11:34)
== END 2018-09-05 11:35 | disposition home or self-care (01) ==
LOC: MADERS 10:41
DX: K04.7 Periapical abscess without sinus (principal); L03.211 Cellulitis of face; E03.9 Hypothyroidism, unspecified; I48.91 Unspecified atrial fibrillation; E78.5 Hyperlipidemia, unspecified; I11.0 Hypertensive heart disease with heart failure; I50.9 Heart failure, unspecified; I25.2 Old myocardial infarction; F32.9 Major depressive disorder, single episode, unspecified; Z79.899 Other long term (current) drug therapy; Z79.82 Long term (current) use of aspirin; Z79.01 Long term (current) use of anticoagulants
CPT/HCPCS: 99282

== ENCOUNTER 2018-10-11 08:27 | Outpatient (CLI) | payer MEDICARE ==
[2018-10-11 08:53] LABS: Prothrombin Time 22.9 SEC (12.0-14.7)
== END 2018-10-11 08:28 | disposition home or self-care (01) ==
LOC: MADLABBHPM 08:27
PROVIDERS: ATTEND Family Medicine
DX: Z51.81 Encounter for therapeutic drug level monitoring (principal); Z79.01 Long term (current) use of anticoagulants; Z79.899 Other long term (current) drug therapy
CPT/HCPCS: 36415; 85610

== ENCOUNTER 2018-11-09 13:05 | Outpatient (CLI) | payer MEDICARE ==
[2018-11-09 13:38] LABS: INR-International Normal Ratio 1.8
== END 2018-11-09 13:06 | disposition home or self-care (01) ==
LOC: MADLABBHPM 13:05
PROVIDERS: ATTEND Family Medicine
DX: Z51.81 Encounter for therapeutic drug level monitoring (principal); Z79.01 Long term (current) use of anticoagulants; Z79.899 Other long term (current) drug therapy
CPT/HCPCS: 36415; 85610

== ENCOUNTER 2018-12-03 07:30 | Outpatient (CLI) | payer MEDICARE ==
[2018-12-03 08:11] LABS: INR-International Normal Ratio 1.1; Prothrombin Time 13.8 SEC (12.0-14.7)
[2018-12-03 17:51] LABS: HIV (1/2) Antibody/Antigen Non-Reactive (NonReactive); HIV 1/2 INDEX 0.05 S/CO (<1.00)
== END 2018-12-03 07:31 | disposition home or self-care (01) ==
LOC: MADLABBHPM 07:30
PROVIDERS: ATTEND Family Medicine
DX: Z11.4 Encounter for screening for human immunodeficiency virus [HIV] (principal)
CPT/HCPCS: 36415; 85610; 87389

== ENCOUNTER 2018-12-10 11:23 | Outpatient (CLI) | payer MEDICARE ==
[2018-12-10 11:50] LABS: INR-International Normal Ratio 1.8; Prothrombin Time 20.5 SEC (12.0-14.7)
== END 2018-12-10 11:24 | disposition home or self-care (01) ==
LOC: MADLABBHPM 11:23
PROVIDERS: ATTEND Family Medicine
DX: Z51.81 Encounter for therapeutic drug level monitoring (principal); Z79.01 Long term (current) use of anticoagulants
CPT/HCPCS: 36415; 85610

== ENCOUNTER 2018-12-24 07:52 | Outpatient (CLI) | payer MEDICARE ==
[2018-12-24 08:15] LABS: INR-International Normal Ratio 2.1; Prothrombin Time 23.2 SEC (12.0-14.7)
== END 2018-12-24 07:53 | disposition home or self-care (01) ==
LOC: MADLABBHPM 07:52
PROVIDERS: ATTEND Family Medicine
DX: Z51.81 Encounter for therapeutic drug level monitoring (principal); Z79.01 Long term (current) use of anticoagulants
CPT/HCPCS: 36415; 85610

== ENCOUNTER 2019-01-21 11:12 | Outpatient (CLI) | payer MEDICARE ==
[2019-01-21 11:33] LABS: INR-International Normal Ratio 1.9; Prothrombin Time 21.8 SEC (12.0-14.7)
== END 2019-01-21 11:13 | disposition home or self-care (01) ==
LOC: MADLABBHPM 11:12
PROVIDERS: ATTEND Family Medicine
DX: Z51.81 Encounter for therapeutic drug level monitoring (principal); Z79.899 Other long term (current) drug therapy
CPT/HCPCS: 36415; 85610

== ENCOUNTER 2019-02-13 12:58 | Outpatient (CLI) | payer MEDICARE ==
[2019-02-13 13:37] LABS: INR-International Normal Ratio 2.2; Prothrombin Time 24.5 SEC (12.0-14.7)
== END 2019-02-13 12:59 | disposition home or self-care (01) ==
LOC: MADLABBHPM 12:58
PROVIDERS: ATTEND Family Medicine
DX: Z51.81 Encounter for therapeutic drug level monitoring (principal); Z79.01 Long term (current) use of anticoagulants
CPT/HCPCS: 36415; 85610

== ENCOUNTER 2019-03-11 07:37 | Outpatient (CLI) | payer MEDICARE ==
[2019-03-11 08:00] LABS: INR-International Normal Ratio 2.2; Prothrombin Time 24.7 SEC (12.0-14.7)
== END 2019-03-11 07:38 | disposition home or self-care (01) ==
LOC: MADLABBHPM 07:37
PROVIDERS: ATTEND Family Medicine
DX: Z51.81 Encounter for therapeutic drug level monitoring (principal); Z79.01 Long term (current) use of anticoagulants
CPT/HCPCS: 36415; 85610

== ENCOUNTER 2019-03-25 09:36 | Outpatient (CLI) | payer MEDICARE ==
[2019-03-25 10:18] LABS: INR-International Normal Ratio 1.5
== END 2019-03-25 09:37 | disposition home or self-care (01) ==
LOC: MADLABBHPM 09:36
PROVIDERS: ATTEND Family Medicine
DX: Z51.81 Encounter for therapeutic drug level monitoring (principal); Z79.899 Other long term (current) drug therapy
CPT/HCPCS: 36415; 85610

== ENCOUNTER 2019-03-27 09:27 | Outpatient (CLI) | payer MEDICARE ==
[2019-03-27 09:48] LABS: INR-International Normal Ratio 1.5; Prothrombin Time 18.3 SEC (12.0-14.7)
== END 2019-03-27 09:28 | disposition home or self-care (01) ==
LOC: MADLABBHPM 09:27
PROVIDERS: ATTEND Family Medicine
DX: Z51.81 Encounter for therapeutic drug level monitoring (principal); Z79.01 Long term (current) use of anticoagulants; Z79.899 Other long term (current) drug therapy
CPT/HCPCS: 36415; 85610

== ENCOUNTER 2019-03-28 11:26 | Outpatient (CLI) | payer MEDICARE ==
[2019-03-28 11:50] LABS: INR-International Normal Ratio 1.7; Prothrombin Time 20.1 SEC (12.0-14.7)
== END 2019-03-28 11:27 | disposition home or self-care (01) ==
LOC: MADLABBHPM 11:26
PROVIDERS: ATTEND Family Medicine
DX: Z51.81 Encounter for therapeutic drug level monitoring (principal); Z79.01 Long term (current) use of anticoagulants
CPT/HCPCS: 36415; 85610

== ENCOUNTER 2019-03-29 09:35 | Outpatient (CLI) | payer MEDICARE ==
[2019-03-29 09:59] LABS: INR-International Normal Ratio 1.9; Prothrombin Time 21.7 SEC (12.0-14.7)
== END 2019-03-29 09:36 | disposition home or self-care (01) ==
LOC: MADLABBHPM 09:35
PROVIDERS: ATTEND Family Medicine
DX: Z51.81 Encounter for therapeutic drug level monitoring (principal); Z79.01 Long term (current) use of anticoagulants
CPT/HCPCS: 36415; 85610

== ENCOUNTER 2019-04-01 07:49 | Outpatient (CLI) | payer MEDICARE ==
[2019-04-01 08:07] LABS: INR-International Normal Ratio 2.6; Prothrombin Time 27.4 SEC (12.0-14.7)
== END 2019-04-01 07:50 | disposition home or self-care (01) ==
LOC: MADLABBHPM 07:49
PROVIDERS: ATTEND Family Medicine
DX: Z51.81 Encounter for therapeutic drug level monitoring (principal); Z79.01 Long term (current) use of anticoagulants
CPT/HCPCS: 36415; 85610

== ENCOUNTER 2019-04-22 08:27 | Outpatient (CLI) | payer MEDICARE ==
[2019-04-22 08:45] LABS: INR-International Normal Ratio 1.4; Prothrombin Time 17.2 SEC (12.0-14.7)
== END 2019-04-22 08:28 | disposition home or self-care (01) ==
LOC: MADLABBHPM 08:27
PROVIDERS: ATTEND Family Medicine
DX: Z51.81 Encounter for therapeutic drug level monitoring (principal); Z79.01 Long term (current) use of anticoagulants
CPT/HCPCS: 36415; 85610

== ENCOUNTER 2019-04-25 11:26 | Outpatient (CLI) | payer MEDICARE ==
[2019-04-25 11:48] LABS: INR-International Normal Ratio 1.6
[2019-04-25 11:53] LABS: Anion Gap 13 mmol/L (10-20); BUN (Urea Nitrogen) 17 mg/dL (9.8-20.1); Calc. Creatinine Clearance 0 mL/min (70-130); Calcium 9.7 mg/dL (7.8-10.44); Carbon Dioxide 23 mmol/L (22-29); Chloride 109 mmol/L (98-107); Estimated GFR-MDRD 68; Glucose 102 mg/dL (70-105); Potassium 4.3 mmol/L (3.5-5.1); Sodium 141 mmol/L (136-145)
== END 2019-04-25 11:27 | disposition home or self-care (01) ==
LOC: MADLAB 11:26
PROVIDERS: ATTEND Family Medicine
DX: R25.2 Cramp and spasm (principal); Z79.899 Other long term (current) drug therapy
CPT/HCPCS: 36415; 80048; 85610

== ENCOUNTER 2019-05-01 11:18 | Outpatient (CLI) | payer MEDICARE ==
[2019-05-01 12:04] LABS: INR-International Normal Ratio 2.6; Prothrombin Time 27.3 SEC (12.0-14.7)
== END 2019-05-01 11:19 | disposition home or self-care (01) ==
LOC: MADLAB 11:18
PROVIDERS: ATTEND Family Medicine
DX: Z51.81 Encounter for therapeutic drug level monitoring (principal); Z79.01 Long term (current) use of anticoagulants
CPT/HCPCS: 36415; 85610

== ENCOUNTER 2019-05-14 08:14 | Outpatient (CLI) | payer MEDICARE ==
[2019-05-14 08:49] LABS: INR-International Normal Ratio 1.7; Prothrombin Time 20.1 SEC (12.0-14.7)
== END 2019-05-14 08:15 | disposition home or self-care (01) ==
LOC: MADLABBHPM 08:14
PROVIDERS: ATTEND Family Medicine
DX: Z51.81 Encounter for therapeutic drug level monitoring (principal); Z79.01 Long term (current) use of anticoagulants; Z79.899 Other long term (current) drug therapy
CPT/HCPCS: 36415; 85610

== ENCOUNTER 2019-05-21 08:46 | Outpatient (CLI) | payer MEDICARE ==
[2019-05-21 09:09] LABS: Prothrombin Time 22.3 SEC (12.0-14.7)
== END 2019-05-21 08:47 | disposition home or self-care (01) ==
LOC: MADLABBHPM 08:46
PROVIDERS: ATTEND Family Medicine
DX: Z51.81 Encounter for therapeutic drug level monitoring (principal); Z79.899 Other long term (current) drug therapy; Z79.01 Long term (current) use of anticoagulants
CPT/HCPCS: 36415; 85610

== ENCOUNTER 2019-06-14 09:39 | Outpatient (CLI) | payer MEDICARE ==
[2019-06-14 10:00] LABS: Prothrombin Time 30.8 SEC (12.0-14.7)
== END 2019-06-14 09:40 | disposition home or self-care (01) ==
LOC: MADLABBHPM 09:39
PROVIDERS: ATTEND Family Medicine
DX: Z51.81 Encounter for therapeutic drug level monitoring (principal); Z79.899 Other long term (current) drug therapy
CPT/HCPCS: 36415; 85610

== ENCOUNTER 2019-07-08 10:04 | Outpatient (CLI) | payer MEDICARE ==
[2019-07-08 10:25] LABS: Prothrombin Time 22.7 sec (12.0-14.7)
== END 2019-07-08 10:05 | disposition home or self-care (01) ==
LOC: MADLAB 10:04
PROVIDERS: ATTEND Family Medicine
DX: Z51.81 Encounter for therapeutic drug level monitoring (principal); Z79.01 Long term (current) use of anticoagulants
CPT/HCPCS: 36415; 85610

== ENCOUNTER 2019-08-01 07:52 | Outpatient (CLI) | payer MEDICARE ==
[2019-08-01 08:30] LABS: INR-International Normal Ratio 1.6; Prothrombin Time 19.2 sec (12.0-14.7)
== END 2019-08-01 07:53 | disposition home or self-care (01) ==
LOC: MADLAB 07:52
PROVIDERS: ATTEND Family Medicine
DX: Z51.81 Encounter for therapeutic drug level monitoring (principal); Z79.899 Other long term (current) drug therapy; Z79.01 Long term (current) use of anticoagulants
CPT/HCPCS: 36415; 85610

== ENCOUNTER 2019-08-08 09:08 | Outpatient (CLI) | payer MEDICARE ==
[2019-08-08 09:31] LABS: INR-International Normal Ratio 2.2; Prothrombin Time 23.9 sec (12.0-14.7)
== END 2019-08-08 09:09 | disposition home or self-care (01) ==
LOC: MADLAB 09:08
PROVIDERS: ATTEND Family Medicine
DX: Z51.81 Encounter for therapeutic drug level monitoring (principal); Z79.01 Long term (current) use of anticoagulants; Z79.899 Other long term (current) drug therapy
CPT/HCPCS: 36415; 85610

== ENCOUNTER 2019-09-09 10:11 | Outpatient (CLI) | payer MEDICARE ==
[2019-09-09 10:48] LABS: INR-International Normal Ratio 2.6; Prothrombin Time 27.5 sec (12.0-14.7)
== END 2019-09-09 10:12 | disposition home or self-care (01) ==
LOC: MADLAB 10:11
PROVIDERS: ATTEND Family Medicine
DX: Z51.81 Encounter for therapeutic drug level monitoring (principal); Z79.01 Long term (current) use of anticoagulants
CPT/HCPCS: 36415; 85610

== ENCOUNTER 2019-10-10 08:39 | Outpatient (CLI) | payer MEDICARE ==
[2019-10-10 09:11] LABS: INR-International Normal Ratio 3.1; Prothrombin Time 31.8 sec (12.0-14.7)
[2019-10-10 09:24] LABS: ALT (SGPT) 17 U/L (8-55); AST (SGOT) 17 U/L (5-34); Albumin 3.8 g/dL (3.5-5.0); Alkaline Phosphatase 56 U/L (40-110); Anion Gap 12 mmol/L (10-20); BUN (Urea Nitrogen) 17 mg/dL (9.8-20.1); Bilirubin, Total 0.8 mg/dL (0.2-1.2); Calc. Creatinine Clearance 0 mL/min (70-130); Carbon Dioxide 26 mmol/L (22-29); Cardiac Risk 2.5 (Less than 4.5); Chloride 108 mmol/L (98-107); Cholesterol 122 mg/dl (< 200 Desired); Estimated GFR-MDRD 71; Globulin 3.2 g/dL (2.4-3.5); Glucose 104 mg/dL (70-105); HDL Cholesterol 49 mg/dL (>60 Neg Risk); LDL Cholesterol, Calculated 58 mg/dL; Potassium 4.5 mmol/L (3.5-5.1); Sodium 141 mmol/L (136-145); Triglycerides 74 mg/dL (Less than 150)
[2019-10-10 09:33] LABS: #Basophils 0.2 thou/uL (0.0-0.2); #Eosinphils 0.9 thou/uL (0.0-0.7); #Monocytes 0.9 thou/uL (0.11-0.59); #Neutrophils 6.1 thou/uL (1.40-6.50); %Basophils 1.8 % (0.0-1.0); %Lymphocytes 26.9 % (21.0-51.0); %Monocytes 8.1 % (0.0-10.0); %Neutrophils 55.2 % (42.0-75.0); Hemoglobin 12.6 g/dL (12.0-16.0); Mean Corpuscular HGB CONC 32.4 g/dL (32.0-36.0); Mean Corpuscular Hemoglobin 29.8 pg (27.0-31.0); Mean Corpuscular Volume 91.8 fL (78.0-98.0); Mean Platelet Volume 7.3 fL (7.4-10.4); Platelet Count 408 thou/uL (130-400); RBC Distribution Width 12.7 % (11.5-14.5); Red Blood Cell (RBC) Count 4.22 mill/uL (4.20-5.40)
== END 2019-10-10 08:40 | disposition home or self-care (01) ==
LOC: MADLAB 08:39
PROVIDERS: ATTEND Family Medicine
DX: Z51.81 Encounter for therapeutic drug level monitoring (principal); I10 Essential (primary) hypertension; I42.8 Other cardiomyopathies; E78.5 Hyperlipidemia, unspecified; Z86.39 Personal history of other endocrine, nutritional and metabolic disease; Z79.01 Long term (current) use of anticoagulants
CPT/HCPCS: 36415; 80053; 80061; 84439; 84443; 85025; 85610

== ENCOUNTER 2019-10-16 09:26 | Outpatient (CLI) | payer MEDICARE, MEDICAID ==
[2019-10-16 10:09] LABS: INR-International Normal Ratio 2.4; Prothrombin Time 25.7 sec (12.0-14.7)
== END 2019-10-16 09:27 | disposition home or self-care (01) ==
LOC: MADLAB 09:26
PROVIDERS: ATTEND Family Medicine
DX: Z51.81 Encounter for therapeutic drug level monitoring (principal); Z79.01 Long term (current) use of anticoagulants
CPT/HCPCS: 36415; 85610

== ENCOUNTER 2019-11-08 08:01 | Outpatient (CLI) | payer MEDICARE, MEDICAID ==
[2019-11-08 08:32] LABS: Prothrombin Time 22.5 sec (12.0-14.7)
== END 2019-11-08 08:02 | disposition home or self-care (01) ==
LOC: MADLAB 08:01
PROVIDERS: ATTEND Family Medicine
DX: Z51.81 Encounter for therapeutic drug level monitoring (principal); Z79.01 Long term (current) use of anticoagulants
CPT/HCPCS: 36415; 85610

== ENCOUNTER 2019-11-29 09:33 | Outpatient (CLI) | payer MEDICARE, MEDICAID ==
[2019-11-29 09:52] LABS: INR-International Normal Ratio 1.8; Prothrombin Time 21.3 sec (12.0-14.7)
[2019-12-04 18:19] LABS: HPV High Risk Type 16 Negative (Negative); HPV High Risk Type 18 Negative (Negative)
[2019-12-04 20:51] LABS: HPV Other High Risk Types Negative (Negative)
== END 2019-11-29 09:34 | disposition home or self-care (01) ==
LOC: MADLAB 09:33
PROVIDERS: ATTEND Family Medicine
DX: Z01.419 Encounter for gynecological examination (general) (routine) without abnormal findings (principal); Z12.11 Encounter for screening for malignant neoplasm of colon
CPT/HCPCS: 36415; 85610; 87624; 88142; G0123; G0124

== ENCOUNTER 2019-12-13 10:55 | Outpatient (CLI) | payer MEDICARE, MEDICAID ==
[2019-12-13 11:18] LABS: INR-International Normal Ratio 2.7; Prothrombin Time 29.2 sec (12.0-14.7)
== END 2019-12-13 10:56 | disposition home or self-care (01) ==
LOC: MADLAB 10:55
PROVIDERS: ATTEND Family Medicine
DX: Z51.81 Encounter for therapeutic drug level monitoring (principal); Z79.01 Long term (current) use of anticoagulants
CPT/HCPCS: 36415; 85610

== ENCOUNTER 2020-01-16 11:22 | Outpatient (CLI) | payer MEDICARE, MEDICAID ==
[2020-01-16 11:51] LABS: INR-International Normal Ratio 3.4; Prothrombin Time 34.8 sec (12.0-14.7)
== END 2020-01-16 11:23 | disposition home or self-care (01) ==
LOC: MADLAB 11:22
PROVIDERS: ATTEND Family Medicine
DX: Z51.81 Encounter for therapeutic drug level monitoring (principal); Z79.01 Long term (current) use of anticoagulants; Z79.899 Other long term (current) drug therapy
CPT/HCPCS: 36415; 85610

== ENCOUNTER 2020-02-03 09:55 | Outpatient (CLI) | payer MEDICARE ==
--- NOTE | 2020-02-03 10:18 | RAD ---
XR Chest Pa Lat STANDARD HISTORY: CHF COMPARISON: 04/11/2019 FINDINGS: Mild cardiomegaly is stable. The aorta is tortuous. No lobar consolidation, pneumothoraces, dada pulmonary edema or large effusions are seen. IMPRESSION: Mild cardiomegaly.
[2020-02-03 10:31] LABS: ALT (SGPT) 19 U/L (8-55); AST (SGOT) 21 U/L (5-34); Albumin 3.9 g/dL (3.5-5.0); Alkaline Phosphatase 58 U/L (40-110); Anion Gap 16 mmol/L (10-20); BUN (Urea Nitrogen) 16 mg/dL (9.8-20.1); Bilirubin, Total 0.7 mg/dL (0.2-1.2); Calc. Creatinine Clearance 0 mL/min (70-130); Calcium 9.3 mg/dL (7.8-10.44); Carbon Dioxide 21 mmol/L (22-29); Chloride 105 mmol/L (98-107); Globulin 3.4 g/dL (2.4-3.5); Glucose 106 mg/dL (70-105); Potassium 4.2 mmol/L (3.5-5.1); Protein, Total 7.3 g/dL (6.0-8.3); Sodium 138 mmol/L (136-145)
== END 2020-02-03 09:56 | disposition home or self-care (01) ==
LOC: MADLAB 09:55
PROVIDERS: ATTEND Family Medicine
DX: I11.0 Hypertensive heart disease with heart failure (principal); I50.32 Chronic diastolic (congestive) heart failure; I51.7 Cardiomegaly
CPT/HCPCS: 36415; 71046; 80053; 83880

== ENCOUNTER 2020-02-24 08:35 | Outpatient (CLI) | payer MEDICARE ==
[2020-02-24 09:00] LABS: Prothrombin Time 31.7 sec (12.0-14.7)
== END 2020-02-24 08:36 | disposition home or self-care (01) ==
LOC: MADLAB 08:35
PROVIDERS: ATTEND Family Medicine
DX: Z51.81 Encounter for therapeutic drug level monitoring (principal); Z79.01 Long term (current) use of anticoagulants
CPT/HCPCS: 36415; 85610

== ENCOUNTER 2020-03-27 10:59 | Outpatient (CLI) | payer MEDICARE, MEDICAID | END 2020-03-27 11:00 | disposition home or self-care (01) | LOC: MADLAB 10:59 | PROVIDERS: ATTEND Family Medicine | DX: Z51.81 Encounter for therapeutic drug level monitoring (principal); Z79.01 Long term (current) use of anticoagulants | CPT/HCPCS: 36415; 85610 ==

== ENCOUNTER 2020-04-02 07:39 | Outpatient (CLI) | payer MEDICARE, MEDICAID ==
[2020-04-02 08:14] LABS: INR-International Normal Ratio 3.7; Prothrombin Time 37.2 sec (12.0-14.7)
== END 2020-04-02 07:40 | disposition home or self-care (01) ==
LOC: MADLAB 07:39
PROVIDERS: ATTEND Family Medicine
DX: Z51.81 Encounter for therapeutic drug level monitoring (principal); Z79.01 Long term (current) use of anticoagulants
CPT/HCPCS: 36415; 85610

== ENCOUNTER 2020-05-04 07:32 | Outpatient (CLI) | payer MEDICARE, MEDICAID ==
[2020-05-04 08:14] LABS: #Basophils 0.3 thou/uL (0.0-0.2); #Eosinphils 0.7 thou/uL (0.0-0.7); #Lymphocytes 2.5 thou/uL (1.20-3.40); #Monocytes 0.9 thou/uL (0.11-0.59); #Neutrophils 6.5 thou/uL (1.40-6.50); %Basophils 2.5 % (0.0-1.0); %Lymphocytes 23.2 % (21.0-51.0); %Monocytes 8.2 % (0.0-10.0); Hemoglobin 13.4 g/dL (12.0-16.0); INR-International Normal Ratio 2.3; Mean Corpuscular HGB CONC 32.8 g/dL (32.0-36.0); Mean Corpuscular Hemoglobin 30.5 pg (27.0-31.0); Mean Corpuscular Volume 92.9 fL (78.0-98.0); Mean Platelet Volume 7.7 fL (7.4-10.4); Platelet Count 395 thou/uL (130-400); Prothrombin Time 25.4 sec (12.0-14.7); RBC Distribution Width 12.8 % (11.5-14.5); Red Blood Cell (RBC) Count 4.41 mill/uL (4.20-5.40); White Blood Cell (WBC) Count 10.9 thou/uL (4.8-10.8)
[2020-05-04 08:25] LABS: ALT (SGPT) 18 U/L (8-55); AST (SGOT) 21 U/L (5-34); Albumin 3.8 g/dL (3.5-5.0); Alkaline Phosphatase 62 U/L (40-110); Anion Gap 13 mmol/L (10-20); BUN (Urea Nitrogen) 12 mg/dL (9.8-20.1); Bilirubin, Total 1.1 mg/dL (0.2-1.2); Calc. Creatinine Clearance 0 mL/min (70-130); Carbon Dioxide 28 mmol/L (22-29); Cardiac Risk 2.8 (Less than 4.5); Chloride 103 mmol/L (98-107); Cholesterol 111 mg/dl (< 200 Desired); Globulin 3.2 g/dL (2.4-3.5); Glucose 99 mg/dL (70-105); HDL Cholesterol 40 mg/dL (>60 Neg Risk); LDL Cholesterol, Calculated 51 mg/dL; Potassium 4.5 mmol/L (3.5-5.1); Sodium 139 mmol/L (136-145); Triglycerides 98 mg/dL (Less than 150)
== END 2020-05-04 07:33 | disposition home or self-care (01) ==
LOC: MADLAB 07:32
PROVIDERS: ATTEND Family Medicine
DX: Z51.81 Encounter for therapeutic drug level monitoring (principal); E78.5 Hyperlipidemia, unspecified; I10 Essential (primary) hypertension; Z79.01 Long term (current) use of anticoagulants
CPT/HCPCS: 36415; 80053; 80061; 83880; 85025; 85610

== ENCOUNTER 2020-05-11 10:59 | Outpatient (CLI) | payer MEDICARE, MEDICAID ==
[2020-05-11 11:10] LABS: INR-International Normal Ratio 2.2
[2020-05-12 13:39] LABS: Anion Gap 16 mmol/L (10-20); BUN (Urea Nitrogen) 14 mg/dL (9.8-20.1); Calc. Creatinine Clearance 0 mL/min (70-130); Calcium 8.8 mg/dL (7.8-10.44); Carbon Dioxide 22 mmol/L (22-29); Chloride 107 mmol/L (98-107); Glucose 98 mg/dL (70-105); Potassium 4.5 mmol/L (3.5-5.1); Sodium 140 mmol/L (136-145)
[2020-05-12 13:54] LABS: Mean Corpuscular HGB CONC 30.2 g/dL (32.0-36.0); Mean Corpuscular Hemoglobin 29.6 pg (27.0-31.0); Mean Platelet Volume 5.9 fL (7.4-10.4); Platelet Count 411 thou/uL (130-400); RBC Distribution Width 13.6 % (11.5-14.5); Red Blood Cell (RBC) Count 4.74 mill/uL (4.20-5.40)
[2020-05-12 14:02] LABS: Band 3 % (5-11); Lymphocytes 43 % (21-51); MDiff Complete? YES; Manual Diff?? YES; Monocytes 4 % (0-10); Neutrophil 48 % (42-75)
[2020-05-12 14:03] LABS: Eosinophils 2 % (0-10)
[2020-05-12 14:04] LABS: Anisocytosis SLIGHT = 6-15 cells (100X) (0-5/hpf); Platelet Morphology Comment Appears Adequate
== END 2020-05-11 11:00 | disposition home or self-care (01) ==
LOC: MADLAB 10:59
PROVIDERS: ATTEND Family Medicine
DX: Z51.81 Encounter for therapeutic drug level monitoring (principal); Z79.01 Long term (current) use of anticoagulants
CPT/HCPCS: 36415; 80048; 85025; 85610

== ENCOUNTER 2020-05-25 09:43 | Outpatient (CLI) | payer MEDICARE, MEDICAID ==
[2020-05-25 10:06] LABS: INR-International Normal Ratio 1.8; Prothrombin Time 21.3 sec (12.0-14.7)
== END 2020-05-25 09:44 | disposition home or self-care (01) ==
LOC: MADLAB 09:43
PROVIDERS: ATTEND Family Medicine
DX: Z51.81 Encounter for therapeutic drug level monitoring (principal); Z79.01 Long term (current) use of anticoagulants; Z79.899 Other long term (current) drug therapy
CPT/HCPCS: 36415; 85610

== ENCOUNTER 2020-06-15 07:33 | Outpatient (CLI) | payer MEDICARE, MEDICAID ==
[2020-06-15 08:02] LABS: #Basophils 0.2 thou/uL (0.0-0.2); #Eosinphils 0.5 thou/uL (0.0-0.7); #Monocytes 0.8 thou/uL (0.11-0.59); %Basophils 1.6 % (0.0-1.0); %Eosinophils 5.4 % (0.0-10.0); %Lymphocytes 21.4 % (21.0-51.0); %Monocytes 8.5 % (0.0-10.0); %Neutrophils 63.1 % (42.0-75.0); Hemoglobin 10.7 g/dL (12.0-16.0); Mean Corpuscular HGB CONC 30.3 g/dL (32.0-36.0); Mean Corpuscular Volume 102.3 fL (78.0-98.0); Mean Platelet Volume 7.5 fL (7.4-10.4); Platelet Count 574 thou/uL (130-400); RBC Distribution Width 16.5 % (11.5-14.5); Red Blood Cell (RBC) Count 3.45 mill/uL (4.20-5.40); White Blood Cell (WBC) Count 9.5 thou/uL (4.8-10.8)
[2020-06-15 08:05] LABS: INR-International Normal Ratio 1.4; Prothrombin Time 17.2 sec (12.0-14.7)
== END 2020-06-15 07:34 | disposition home or self-care (01) ==
LOC: MADLAB 07:33
PROVIDERS: ATTEND Family Medicine
DX: Z51.81 Encounter for therapeutic drug level monitoring (principal); D62 Acute posthemorrhagic anemia; Z79.01 Long term (current) use of anticoagulants
CPT/HCPCS: 36415; 82728; 85025; 85610

== ENCOUNTER 2020-06-22 07:40 | Outpatient (CLI) | payer MEDICARE, MEDICAID ==
[2020-06-22 08:00] LABS: INR-International Normal Ratio 2.1; Prothrombin Time 24.2 sec (12.0-14.7)
== END 2020-06-22 07:41 | disposition home or self-care (01) ==
LOC: MADLAB 07:40
PROVIDERS: ATTEND Family Medicine
DX: Z51.81 Encounter for therapeutic drug level monitoring (principal); Z79.01 Long term (current) use of anticoagulants
CPT/HCPCS: 36415; 85610

== ENCOUNTER 2020-07-02 11:36 | Outpatient (CLI) | payer MEDICARE, MEDICAID ==
[2020-07-02 11:53] LABS: INR-International Normal Ratio 2.9; Prothrombin Time 30.6 sec (12.0-14.7)
== END 2020-07-02 11:37 | disposition home or self-care (01) ==
LOC: MADLAB 11:36
PROVIDERS: ATTEND Family Medicine
DX: Z51.81 Encounter for therapeutic drug level monitoring (principal); Z79.01 Long term (current) use of anticoagulants
CPT/HCPCS: 36415; 85610

== ENCOUNTER 2020-07-09 07:33 | Outpatient (CLI) | payer MEDICARE, MEDICAID ==
[2020-07-09 08:12] LABS: Prothrombin Time 46.1 sec (12.0-14.7)
[2020-07-09 08:26] LABS: INR-International Normal Ratio 4.8
== END 2020-07-09 07:34 | disposition home or self-care (01) ==
LOC: MADLAB 07:33
PROVIDERS: ATTEND Family Medicine
DX: Z51.81 Encounter for therapeutic drug level monitoring (principal); Z79.01 Long term (current) use of anticoagulants
CPT/HCPCS: 85610

== ENCOUNTER 2020-07-10 11:20 | Outpatient (CLI) | payer MEDICARE, MEDICAID ==
[2020-07-10 11:42] LABS: INR-International Normal Ratio 3.5; Prothrombin Time 35.6 sec (12.0-14.7)
== END 2020-07-10 11:21 | disposition home or self-care (01) ==
LOC: MADLAB 11:20
PROVIDERS: ATTEND Family Medicine
DX: Z51.81 Encounter for therapeutic drug level monitoring (principal); Z79.01 Long term (current) use of anticoagulants
CPT/HCPCS: 85610

== ENCOUNTER 2020-07-16 07:36 | Outpatient (CLI) | payer MEDICARE, MEDICAID ==
[2020-07-16 08:18] LABS: INR-International Normal Ratio 1.7; Prothrombin Time 20.1 sec (12.0-14.7)
== END 2020-07-16 07:37 | disposition home or self-care (01) ==
LOC: MADLAB 07:36
PROVIDERS: ATTEND Family Medicine
DX: Z51.81 Encounter for therapeutic drug level monitoring (principal); Z79.01 Long term (current) use of anticoagulants
CPT/HCPCS: 36415; 85610

== ENCOUNTER 2020-07-23 07:42 | Outpatient (CLI) | payer MEDICARE, MEDICAID ==
[2020-07-23 08:18] LABS: INR-International Normal Ratio 2.1; Prothrombin Time 23.8 sec (12.0-14.7)
== END 2020-07-23 07:43 | disposition home or self-care (01) ==
LOC: MADLAB 07:42
PROVIDERS: ATTEND Family Medicine
DX: Z51.81 Encounter for therapeutic drug level monitoring (principal); Z79.01 Long term (current) use of anticoagulants
CPT/HCPCS: 36415; 85610

== ENCOUNTER 2020-07-30 09:42 | Outpatient (CLI) | payer MEDICARE, MEDICAID ==
[2020-07-30 10:10] LABS: INR-International Normal Ratio 2.8; Prothrombin Time 30.3 sec (12.0-14.7)
== END 2020-07-30 09:43 | disposition home or self-care (01) ==
LOC: MADLAB 09:42
PROVIDERS: ATTEND Family Medicine
DX: Z51.81 Encounter for therapeutic drug level monitoring (principal); Z79.01 Long term (current) use of anticoagulants
CPT/HCPCS: 36415; 85610

== ENCOUNTER 2020-08-13 08:49 | Outpatient (CLI) | payer MEDICARE, MEDICAID ==
[2020-08-13 09:37] LABS: INR-International Normal Ratio 3.2; Prothrombin Time 33.4 sec (12.0-14.7)
== END 2020-08-13 08:50 | disposition home or self-care (01) ==
LOC: MADLAB 08:49
PROVIDERS: ATTEND Family Medicine
DX: Z51.81 Encounter for therapeutic drug level monitoring (principal); Z79.01 Long term (current) use of anticoagulants; Z79.899 Other long term (current) drug therapy
CPT/HCPCS: 36415; 85610

== ENCOUNTER 2020-08-17 08:48 | Outpatient (CLI) | payer MEDICARE, MEDICAID ==
[2020-08-17 09:13] LABS: INR-International Normal Ratio 1.7; Prothrombin Time 20.7 sec (12.0-14.7)
== END 2020-08-17 08:49 | disposition home or self-care (01) ==
LOC: MADLAB 08:48
PROVIDERS: ATTEND Family Medicine
DX: Z51.81 Encounter for therapeutic drug level monitoring (principal); Z79.01 Long term (current) use of anticoagulants
CPT/HCPCS: 36415; 85610

== ENCOUNTER 2020-09-08 11:03 | Outpatient (CLI) | payer MEDICARE, MEDICAID ==
[2020-09-08 11:37] LABS: INR-International Normal Ratio 1.8; Prothrombin Time 21.2 sec (12.0-14.7)
[2020-09-08 11:43] LABS: #Basophils 0.2 thou/uL (0.0-0.2); #Eosinphils 0.5 thou/uL (0.0-0.7); #Lymphocytes 2.8 thou/uL (1.20-3.40); #Monocytes 0.9 thou/uL (0.11-0.59); %Basophils 2.4 % (0.0-1.0); %Eosinophils 4.5 % (0.0-10.0); %Lymphocytes 26.7 % (21.0-51.0); %Monocytes 8.7 % (0.0-10.0); %Neutrophils 57.8 % (42.0-75.0); Mean Corpuscular HGB CONC 30.8 g/dL (32.0-36.0); Mean Corpuscular Hemoglobin 28.9 pg (27.0-31.0); Mean Corpuscular Volume 93.7 fL (78.0-98.0); Mean Platelet Volume 8.6 fL (7.4-10.4); Platelet Count 454 thou/uL (130-400); Red Blood Cell (RBC) Count 4.84 mill/uL (4.20-5.40); White Blood Cell (WBC) Count 10.3 thou/uL (4.8-10.8)
[2020-09-08 11:47] LABS: ALT (SGPT) 18 U/L (8-55); AST (SGOT) 19 U/L (5-34); Albumin 4.1 g/dL (3.5-5.0); Alkaline Phosphatase 66 U/L (40-110); Anion Gap 12 mmol/L (10-20); BUN (Urea Nitrogen) 15 mg/dL (9.8-20.1); Calc. Creatinine Clearance 0 mL/min (70-130); Calcium 9.5 mg/dL (7.8-10.44); Carbon Dioxide 27 mmol/L (22-29); Chloride 103 mmol/L (98-107); Globulin 3.6 g/dL (2.4-3.5); Glucose 98 mg/dL (70-105); Potassium 4.4 mmol/L (3.5-5.1); Protein, Total 7.7 g/dL (6.0-8.3); Sodium 138 mmol/L (136-145)
== END 2020-09-08 11:04 | disposition home or self-care (01) ==
LOC: MADLAB 11:03
PROVIDERS: ATTEND Family Medicine
DX: Z51.81 Encounter for therapeutic drug level monitoring (principal); I11.0 Hypertensive heart disease with heart failure; I50.9 Heart failure, unspecified; Z79.01 Long term (current) use of anticoagulants
CPT/HCPCS: 36415; 80053; 85025; 85610

== ENCOUNTER 2020-09-22 08:28 | Outpatient (CLI) | payer MEDICARE, MEDICAID ==
[2020-09-22 09:04] LABS: INR-International Normal Ratio 2.4; Prothrombin Time 25.6 sec (12.0-14.7)
== END 2020-09-22 08:29 | disposition home or self-care (01) ==
LOC: MADLAB 08:28
PROVIDERS: ATTEND Family Medicine
DX: Z51.81 Encounter for therapeutic drug level monitoring (principal); Z79.01 Long term (current) use of anticoagulants
CPT/HCPCS: 36415; 85610

== ENCOUNTER 2020-10-21 11:56 | Outpatient (CLI) | payer MEDICARE, MEDICAID ==
[2020-10-21 12:13] LABS: #Basophils 0.2 thou/uL (0.0-0.2); #Eosinphils 1.6 thou/uL (0.0-0.7); #Lymphocytes 3.8 thou/uL (1.20-3.40); #Monocytes 1.2 thou/uL (0.11-0.59); #Neutrophils 9.1 thou/uL (1.40-6.50); %Basophils 1.6 % (0.0-1.0); %Lymphocytes 23.8 % (21.0-51.0); %Monocytes 7.3 % (0.0-10.0); %Neutrophils 57.3 % (42.0-75.0); Hemoglobin 13.7 g/dL (12.0-16.0); Mean Corpuscular HGB CONC 31.4 g/dL (32.0-36.0); Mean Corpuscular Hemoglobin 29.3 pg (27.0-31.0); Mean Corpuscular Volume 93.4 fL (78.0-98.0); Mean Platelet Volume 9.1 fL (7.4-10.4); Platelet Count 385 thou/uL (130-400); RBC Distribution Width 14.2 % (11.5-14.5); Red Blood Cell (RBC) Count 4.67 mill/uL (4.20-5.40); White Blood Cell (WBC) Count 15.8 thou/uL (4.8-10.8)
[2020-10-21 12:21] LABS: INR-International Normal Ratio 1.8; Prothrombin Time 20.6 sec (12.0-14.7)
== END 2020-10-21 11:57 | disposition home or self-care (01) ==
LOC: MADLAB 11:56
PROVIDERS: ATTEND Family Medicine
DX: Z51.81 Encounter for therapeutic drug level monitoring (principal); Z79.01 Long term (current) use of anticoagulants
CPT/HCPCS: 36415; 85025; 85610; 93005; 93010

== ENCOUNTER 2020-10-29 11:06 | Outpatient (CLI) | payer MEDICARE, MEDICAID ==
[2020-10-29 11:29] LABS: Prothrombin Time 22.8 sec (12.0-14.7)
== END 2020-10-29 11:07 | disposition home or self-care (01) ==
LOC: MADLAB 11:06
PROVIDERS: ATTEND Family Medicine
DX: Z51.81 Encounter for therapeutic drug level monitoring (principal); Z79.01 Long term (current) use of anticoagulants; Z79.899 Other long term (current) drug therapy
CPT/HCPCS: 36415; 85610

== ENCOUNTER 2020-11-23 09:10 | Outpatient (CLI) | payer MEDICARE, MEDICAID ==
[2020-11-23 09:32] LABS: Hemoglobin 13.1 g/dL (12.0-16.0); Mean Corpuscular HGB CONC 31.1 g/dL (32.0-36.0); Mean Corpuscular Hemoglobin 29.9 pg (27.0-31.0); Platelet Count 486 thou/uL (130-400); Red Blood Cell (RBC) Count 4.39 mill/uL (4.20-5.40); White Blood Cell (WBC) Count 12.3 thou/uL (4.8-10.8)
[2020-11-23 09:39] LABS: INR-International Normal Ratio 1.7; Prothrombin Time 20.3 sec (12.0-14.7)
[2020-11-23 09:47] LABS: ALT (SGPT) 21 U/L (8-55); AST (SGOT) 21 U/L (5-34); Albumin 3.8 g/dL (3.5-5.0); Alkaline Phosphatase 63 U/L (40-110); Anion Gap 13 mmol/L (10-20); BUN (Urea Nitrogen) 17 mg/dL (9.8-20.1); Bilirubin, Total 1.6 mg/dL (0.2-1.2); Calc. Creatinine Clearance 0 mL/min (70-130); Calcium 9.7 mg/dL (7.8-10.44); Carbon Dioxide 25 mmol/L (22-29); Chloride 105 mmol/L (98-107); Globulin 3.4 g/dL (2.4-3.5); Glucose 95 mg/dL (70-105); Protein, Total 7.2 g/dL (6.0-8.3); Sodium 139 mmol/L (136-145)
== END 2020-11-23 09:11 | disposition home or self-care (01) ==
LOC: MADLAB 09:10
PROVIDERS: ATTEND Family Medicine
DX: Z51.81 Encounter for therapeutic drug level monitoring (principal); D47.3 Essential (hemorrhagic) thrombocythemia; Z79.01 Long term (current) use of anticoagulants
CPT/HCPCS: 36415; 80053; 85027; 85610

== ENCOUNTER 2020-12-16 12:11 | Outpatient (CLI) | payer MEDICARE, MEDICAID ==
[2020-12-16 12:42] LABS: #Basophils 0.3 thou/uL (0.0-0.2); #Eosinphils 0.8 thou/uL (0.0-0.7); #Lymphocytes 2.2 thou/uL (1.20-3.40); #Monocytes 0.7 thou/uL (0.11-0.59); #Neutrophils 6.5 thou/uL (1.40-6.50); %Basophils 2.4 % (0.0-1.0); %Lymphocytes 20.9 % (21.0-51.0); %Monocytes 6.7 % (0.0-10.0); %Neutrophils 61.9 % (42.0-75.0); Hemoglobin 13.9 g/dL (12.0-16.0); Mean Corpuscular HGB CONC 31.2 g/dL (32.0-36.0); Mean Corpuscular Hemoglobin 30.2 pg (27.0-31.0); Mean Corpuscular Volume 96.5 fL (78.0-98.0); Mean Platelet Volume 6.9 fL (7.4-10.4); Platelet Count 427 thou/uL (130-400); RBC Distribution Width 13.4 % (11.5-14.5); Red Blood Cell (RBC) Count 4.62 mill/uL (4.20-5.40); White Blood Cell (WBC) Count 10.4 thou/uL (4.8-10.8)
[2020-12-16 12:51] LABS: INR-International Normal Ratio 1.6; Prothrombin Time 19.4 sec (12.0-14.7)
[2020-12-16 12:58] LABS: Bilirubin, Direct 0.6 mg/dL (0.1-0.3); Bilirubin, Total 1.6 mg/dL (0.2-1.2)
== END 2020-12-16 12:12 | disposition home or self-care (01) ==
LOC: MADLAB 12:11
PROVIDERS: ATTEND Family Medicine
DX: Z51.81 Encounter for therapeutic drug level monitoring (principal); I48.91 Unspecified atrial fibrillation; R14.0 Abdominal distension (gaseous); R11.0 Nausea; R10.33 Periumbilical pain; Z79.01 Long term (current) use of anticoagulants
CPT/HCPCS: 36415; 82247; 82248; 84439; 84443; 85025; 85610

== ENCOUNTER 2020-12-23 12:31 | Outpatient (CLI) | payer MEDICARE, MEDICAID ==
[2020-12-23 13:09] LABS: INR-International Normal Ratio 1.8; Prothrombin Time 21.4 sec (12.0-14.7)
== END 2020-12-23 12:32 | disposition home or self-care (01) ==
LOC: MADLAB 12:31
PROVIDERS: ATTEND Family Medicine
DX: Z51.81 Encounter for therapeutic drug level monitoring (principal); I48.91 Unspecified atrial fibrillation; Z79.01 Long term (current) use of anticoagulants
CPT/HCPCS: 36415; 85610

== ENCOUNTER 2020-12-30 10:18 | Outpatient (CLI) | payer MEDICARE, MEDICAID ==
[2020-12-30 11:03] LABS: Prothrombin Time 31.6 sec (12.0-14.7)
== END 2020-12-30 10:19 | disposition home or self-care (01) ==
LOC: MADLAB 10:18
PROVIDERS: ATTEND Family Medicine
DX: Z51.81 Encounter for therapeutic drug level monitoring (principal); I48.91 Unspecified atrial fibrillation; D47.3 Essential (hemorrhagic) thrombocythemia; Z79.01 Long term (current) use of anticoagulants
CPT/HCPCS: 36415; 85610

== ENCOUNTER 2021-01-06 08:10 | Outpatient (CLI) | payer MEDICARE, MEDICAID ==
[2021-01-06 08:48] LABS: Prothrombin Time 31.6 sec (12.0-14.7)
== END 2021-01-06 08:11 | disposition home or self-care (01) ==
LOC: MADLAB 08:10
PROVIDERS: ATTEND Family Medicine
DX: Z51.81 Encounter for therapeutic drug level monitoring (principal); I48.91 Unspecified atrial fibrillation; Z79.01 Long term (current) use of anticoagulants
CPT/HCPCS: 36415; 85610

== ENCOUNTER 2021-01-26 07:41 | Outpatient (CLI) | payer MEDICARE, MEDICAID ==
[2021-01-26 08:07] LABS: INR-International Normal Ratio 3.9; Prothrombin Time 38.7 sec (12.0-14.7)
== END 2021-01-26 07:42 | disposition home or self-care (01) ==
LOC: MADLAB 07:41
PROVIDERS: ATTEND Family Medicine
DX: Z51.81 Encounter for therapeutic drug level monitoring (principal); I48.91 Unspecified atrial fibrillation; Z79.01 Long term (current) use of anticoagulants
CPT/HCPCS: 36415; 85610

== ENCOUNTER 2021-01-26 09:35 | Outpatient (CLI) | payer MEDICARE, MEDICAID | END 2021-01-26 09:36 | disposition home or self-care (01) | LOC: MADLAB 09:35 → MADEKG 09:36 | PROVIDERS: ATTEND Family Medicine | DX: Z51.81 Encounter for therapeutic drug level monitoring (principal); I48.20 Chronic atrial fibrillation, unspecified; Z79.01 Long term (current) use of anticoagulants; I48.91 Unspecified atrial fibrillation | CPT/HCPCS: 36415; 85610; 93005; 93010 ==

== ENCOUNTER 2021-02-04 11:17 | Outpatient (CLI) | payer OTHER, MEDICAID ==
[2021-02-04 11:57] LABS: INR-International Normal Ratio 2.4; Prothrombin Time 26.2 sec (12.0-14.7)
== END 2021-02-04 11:18 | disposition home or self-care (01) ==
LOC: MADLAB 11:17
PROVIDERS: ATTEND Family Medicine
DX: Z51.81 Encounter for therapeutic drug level monitoring (principal); I48.91 Unspecified atrial fibrillation; Z79.01 Long term (current) use of anticoagulants
CPT/HCPCS: 36415; 85610

== ENCOUNTER 2021-02-22 11:22 | Emergency (ER) | payer MEDICARE, MEDICAID ==
[2021-02-22] MEDS ORDERED: Sodium Chloride 0.9% 1,000 ML ONE (12:41)
[2021-02-22 12:44] LABS: #Basophils 0.3 thou/uL (0.0-0.2); #Eosinphils 0.7 thou/uL (0.0-0.7); #Lymphocytes 1.2 thou/uL (1.20-3.40); #Monocytes 0.5 thou/uL (0.11-0.59); #Neutrophils 9.9 thou/uL (1.40-6.50); %Basophils 2.2 % (0.0-1.0); %Eosinophils 5.9 % (0.0-10.0); %Lymphocytes 9.3 % (21.0-51.0); %Monocytes 3.8 % (0.0-10.0); %Neutrophils 78.9 % (42.0-75.0); Hemoglobin 11.2 g/dL (12.0-16.0); Mean Corpuscular HGB CONC 31.9 g/dL (32.0-36.0); Mean Corpuscular Hemoglobin 30.1 pg (27.0-31.0); Mean Corpuscular Volume 94.4 fL (78.0-98.0); Platelet Count 658 thou/uL (130-400); RBC Distribution Width 13.5 % (11.5-14.5); Red Blood Cell (RBC) Count 3.71 mill/uL (4.20-5.40); White Blood Cell (WBC) Count 12.5 thou/uL (4.8-10.8)
[2021-02-22 13:07] LABS: ALT (SGPT) 17 U/L (8-55); AST (SGOT) 19 U/L (5-34); Albumin 3.5 g/dL (3.5-5.0); Alkaline Phosphatase 78 U/L (40-110); Anion Gap 9 mmol/L (10-20); BUN (Urea Nitrogen) 18 mg/dL (9.8-20.1); Bilirubin, Total 1.4 mg/dL (0.2-1.2); Calc. Creatinine Clearance 0 mL/min (70-130); Calcium 9.1 mg/dL (7.8-10.44); Carbon Dioxide 27 mmol/L (22-29); Chloride 105 mmol/L (98-107); Globulin 3.1 g/dL (2.4-3.5); Glucose 105 mg/dL (70-105); Potassium 4.1 mmol/L (3.5-5.1); Protein, Total 6.6 g/dL (6.0-8.3); Sodium 137 mmol/L (136-145)
[2021-02-22 13:20] LABS: CKMB 0.6 ng/mL (0-6.6)
[2021-02-22 13:51] LABS: Prothrombin Time 31.9 sec (12.0-14.7)
[2021-02-22] MEDS ORDERED: Diltiazem 125 MG/25 ML ONE (13:52)
[2021-02-22] MEDS ORDERED: Sodium Chloride 0.9% 100 ML ONE (13:52)
[2021-02-22] MEDS ORDERED: Benzonatate 100 MG CAP ONE (14:06)
[2021-02-22] MEDS ORDERED: guaiFENesin/Codeine Phosphate 100 mg/10 mg 5 ml UD Cup ONE (14:51)
[2021-02-22] MEDS ORDERED: Acetaminophen 500 MG TAB ONE (16:13)
[2021-02-22 16:45] LABS: SARS-CoV-2 NAA Rapid Test DETECTED (NotDetected)
== END 2021-02-22 18:36 | disposition short-term general hospital (02) ==
LOC: MADERS 11:22
DX: U07.1 COVID-19 (principal); I48.91 Unspecified atrial fibrillation; I11.0 Hypertensive heart disease with heart failure; I50.9 Heart failure, unspecified; E03.9 Hypothyroidism, unspecified; E78.5 Hyperlipidemia, unspecified; I25.2 Old myocardial infarction; J45.909 Unspecified asthma, uncomplicated; M19.90 Unspecified osteoarthritis, unspecified site; Z79.82 Long term (current) use of aspirin; Z79.01 Long term (current) use of anticoagulants; Z79.899 Other long term (current) drug therapy
CPT/HCPCS: 36415; 71045; 80053; 82553; 83605; 83880; 84484; 85025; 85610; 87804; 93005; 96365; 96366; J3490; J7050; J7620; U0002

== ENCOUNTER 2021-03-05 11:45 | Outpatient (CLI) | payer MEDICARE, MEDICAID ==
[2021-03-05 12:54] LABS: Prothrombin Time 76.7 sec (12.0-14.7)
[2021-03-05 13:05] LABS: INR-International Normal Ratio 9.1
== END 2021-03-05 11:46 | disposition home or self-care (01) ==
LOC: MADLAB 11:45
PROVIDERS: ATTEND Family Medicine
DX: Z51.81 Encounter for therapeutic drug level monitoring (principal); I48.91 Unspecified atrial fibrillation; Z79.01 Long term (current) use of anticoagulants
CPT/HCPCS: 36415; 85610

== ENCOUNTER 2021-03-06 09:53 | Outpatient (CLI) | payer MEDICARE, MEDICAID ==
[2021-03-06 10:27] LABS: Prothrombin Time 74.7 sec (12.0-14.7)
[2021-03-06 10:50] LABS: INR-International Normal Ratio 8.8
== END 2021-03-06 09:54 | disposition home or self-care (01) ==
LOC: MADLAB 09:53
PROVIDERS: ATTEND Family Medicine
DX: Z51.81 Encounter for therapeutic drug level monitoring (principal); I48.91 Unspecified atrial fibrillation; Z79.01 Long term (current) use of anticoagulants
CPT/HCPCS: 36415; 85610

== ENCOUNTER 2021-03-08 11:00 | Outpatient (CLI) | payer MEDICARE, MEDICAID ==
[2021-03-08 11:34] LABS: Prothrombin Time 39.8 sec (12.0-14.7)
== END 2021-03-08 11:01 | disposition home or self-care (01) ==
LOC: MADLAB 11:00
PROVIDERS: ATTEND Family Medicine
DX: Z51.81 Encounter for therapeutic drug level monitoring (principal); I48.91 Unspecified atrial fibrillation; Z79.01 Long term (current) use of anticoagulants
CPT/HCPCS: 36415; 85610

== ENCOUNTER 2021-03-12 13:00 | Outpatient (CLI) | payer MEDICARE, MEDICAID ==
[2021-03-12 13:23] LABS: INR-International Normal Ratio 1.3; Prothrombin Time 16.5 sec (12.0-14.7)
== END 2021-03-12 13:01 | disposition home or self-care (01) ==
LOC: MADLAB 13:00
PROVIDERS: ATTEND Family Medicine
DX: Z51.81 Encounter for therapeutic drug level monitoring (principal); I48.91 Unspecified atrial fibrillation; Z79.01 Long term (current) use of anticoagulants
CPT/HCPCS: 36415; 85610

== ENCOUNTER 2021-03-17 14:32 | Outpatient (CLI) | payer MEDICARE, MEDICAID ==
[2021-03-17 15:03] LABS: INR-International Normal Ratio 1.6; Prothrombin Time 19.7 sec (12.0-14.7)
== END 2021-03-17 14:33 | disposition home or self-care (01) ==
LOC: MADLAB 14:32
PROVIDERS: ATTEND Family Medicine
DX: Z51.81 Encounter for therapeutic drug level monitoring (principal); I48.91 Unspecified atrial fibrillation; Z79.01 Long term (current) use of anticoagulants
CPT/HCPCS: 36415; 85610

== ENCOUNTER 2021-03-25 11:33 | Outpatient (CLI) | payer MEDICARE, MEDICAID ==
[2021-03-25 11:55] LABS: INR-International Normal Ratio 2.9
== END 2021-03-25 11:34 | disposition home or self-care (01) ==
LOC: MADLAB 11:33
PROVIDERS: ATTEND Family Medicine
DX: Z51.81 Encounter for therapeutic drug level monitoring (principal); I48.91 Unspecified atrial fibrillation; Z79.01 Long term (current) use of anticoagulants
CPT/HCPCS: 36415; 85610

== ENCOUNTER 2021-04-05 11:00 | Outpatient (CLI) | payer OTHER, MEDICAID ==
[2021-04-05 11:39] LABS: INR-International Normal Ratio 2.6; Prothrombin Time 28.4 sec (12.0-14.7)
== END 2021-04-05 11:01 | disposition home or self-care (01) ==
LOC: MADLAB 11:00
PROVIDERS: ATTEND Family Medicine
DX: Z51.81 Encounter for therapeutic drug level monitoring (principal); I48.91 Unspecified atrial fibrillation; Z79.01 Long term (current) use of anticoagulants
CPT/HCPCS: 36415; 85610

== ENCOUNTER 2021-05-03 12:20 | Outpatient (CLI) | payer OTHER, MEDICAID ==
[2021-05-03 12:51] LABS: INR-International Normal Ratio 2.9; Prothrombin Time 31.3 sec (12.0-14.7)
== END 2021-05-03 12:21 | disposition home or self-care (01) ==
LOC: MADLAB 12:20
PROVIDERS: ATTEND Family Medicine
DX: Z51.81 Encounter for therapeutic drug level monitoring (principal); I48.91 Unspecified atrial fibrillation; Z79.01 Long term (current) use of anticoagulants
CPT/HCPCS: 36415; 85610

== ENCOUNTER 2021-07-05 11:08 | Outpatient (CLI) | payer OTHER ==
[2021-07-05 11:42] LABS: Prothrombin Time 40.5 sec (12.0-14.7)
[2021-07-05 11:43] LABS: INR-International Normal Ratio 4.1
== END 2021-07-05 11:09 | disposition home or self-care (01) ==
LOC: MADLAB 11:08
PROVIDERS: ATTEND Family Medicine
DX: Z51.81 Encounter for therapeutic drug level monitoring (principal); I48.91 Unspecified atrial fibrillation; Z79.01 Long term (current) use of anticoagulants
CPT/HCPCS: 36415; 85610

== ENCOUNTER 2021-07-19 10:38 | Outpatient (CLI) | payer OTHER, MEDICAID ==
[2021-07-19 11:27] LABS: INR-International Normal Ratio 2.1; Prothrombin Time 23.9 sec (12.0-14.7)
== END 2021-07-19 10:39 | disposition home or self-care (01) ==
LOC: MADLAB 10:38
PROVIDERS: ATTEND Family Medicine
DX: Z51.81 Encounter for therapeutic drug level monitoring (principal); I48.91 Unspecified atrial fibrillation; Z79.01 Long term (current) use of anticoagulants
CPT/HCPCS: 36415; 85610

== ENCOUNTER 2021-08-09 09:10 | Outpatient (CLI) | payer OTHER ==
[2021-08-09 09:40] LABS: INR-International Normal Ratio 2.8; Prothrombin Time 30.1 sec (12.0-14.7)
== END 2021-08-09 09:11 | disposition home or self-care (01) ==
LOC: MADLAB 09:10
PROVIDERS: ATTEND Family Medicine
DX: Z51.81 Encounter for therapeutic drug level monitoring (principal); I48.91 Unspecified atrial fibrillation; Z79.01 Long term (current) use of anticoagulants
CPT/HCPCS: 36415; 85610

== ENCOUNTER 2021-09-01 11:19 | Outpatient (CLI) | payer OTHER ==
[2021-09-01 11:53] LABS: INR-International Normal Ratio 2.5; Prothrombin Time 27.5 sec (12.0-14.7)
== END 2021-09-01 11:20 | disposition home or self-care (01) ==
LOC: MADLAB 11:19
PROVIDERS: ATTEND Family Medicine
DX: Z51.81 Encounter for therapeutic drug level monitoring (principal); I48.91 Unspecified atrial fibrillation; Z79.01 Long term (current) use of anticoagulants
CPT/HCPCS: 36415; 85610

== ENCOUNTER 2021-11-03 08:54 | Outpatient (CLI) | payer OTHER ==
[2021-11-03 09:45] LABS: INR-International Normal Ratio 2.2; Prothrombin Time 25.1 sec (12.0-14.7)
== END 2021-11-03 08:55 | disposition home or self-care (01) ==
LOC: MADLAB 08:54
PROVIDERS: ATTEND Family Medicine
DX: Z51.81 Encounter for therapeutic drug level monitoring (principal); I48.91 Unspecified atrial fibrillation; Z79.01 Long term (current) use of anticoagulants
CPT/HCPCS: 36415; 85610

== ENCOUNTER 2021-11-09 12:11 | Outpatient (CLI) | payer OTHER | END 2021-11-09 12:12 | disposition home or self-care (01) | LOC: MADLAB 12:11 → MADRAD 12:12 | PROVIDERS: ATTEND Family Medicine | DX: M79.672 Pain in left foot (principal); M25.572 Pain in left ankle and joints of left foot; M19.072 Primary osteoarthritis, left ankle and foot; Z98.890 Other specified postprocedural states ==

== ENCOUNTER 2021-12-27 07:43 | Outpatient (CLI) | payer MEDICARE, OTHER ==
[2021-12-27 08:39] LABS: ALT (SGPT) 7 U/L (8-55); AST (SGOT) 15 U/L (5-34); Albumin 3.8 g/dL (3.5-5.0); Alkaline Phosphatase 108 U/L (40-110); Anion Gap 12 mmol/L (10-20); BUN (Urea Nitrogen) 14 mg/dL (9.8-20.1); Bilirubin, Total 1.3 mg/dL (0.2-1.2); Calc. Creatinine Clearance 0 mL/min (70-130); Calcium 9.6 mg/dL (7.8-10.44); Carbon Dioxide 28 mmol/L (22-29); Chloride 102 mmol/L (98-107); Cholesterol 127 mg/dl (< 200 Desired); Estimated GFR 52; Globulin 3.6 g/dL (2.4-3.5); Glucose 104 mg/dL (70-105); HDL Cholesterol 43 mg/dL (>60 Neg Risk); LDL Cholesterol, Calculated 62 mg/dL; Potassium 4.3 mmol/L (3.5-5.1); Protein, Total 7.4 g/dL (6.0-8.3); Sodium 138 mmol/L (136-145); Triglycerides 109 mg/dL (Less than 150)
[2021-12-27 08:58] LABS: #Basophils 0.2 thou/uL (0.0-0.2); #Eosinphils 1.3 thou/uL (0.0-0.7); #Lymphocytes 2.5 thou/uL (1.20-3.40); #Monocytes 0.9 thou/uL (0.11-0.59); #Neutrophils 6.2 thou/uL (1.40-6.50); %Basophils 2.1 % (0.0-1.0); %Eosinophils 11.7 % (0.0-10.0); %Lymphocytes 22.5 % (21.0-51.0); %Monocytes 7.8 % (0.0-10.0); %Neutrophils 55.9 % (42.0-75.0); Mean Corpuscular HGB CONC 30.9 g/dL (32.0-36.0); Mean Corpuscular Hemoglobin 27.2 pg (27.0-31.0); Mean Corpuscular Volume 88.3 fl (78.0-98.0); Mean Platelet Volume 7.1 fL (7.4-10.4); Platelet Count 467 thou/uL (130-400); RBC Distribution Width 15.3 % (11.5-14.5); Red Blood Cell (RBC) Count 4.39 mill/uL (4.20-5.40)
[2021-12-27 09:13] LABS: Thyroid Stimulating Hormone 12.5195 uIU/mL (0.35-4.94)
[2021-12-27 18:27] LABS: HIV (1/2) Antibody/Antigen Non-Reactive (NonReactive); HIV 1/2 INDEX 0.19 S/CO (<1.00); Vitamin D, 25 Hydroxy 11.2 ng/ml (> 30.0)
== END 2021-12-27 07:44 | disposition home or self-care (01) ==
LOC: MADLAB 07:43
PROVIDERS: ATTEND Family Medicine
DX: Z11.4 Encounter for screening for human immunodeficiency virus [HIV] (principal); I11.0 Hypertensive heart disease with heart failure; I50.9 Heart failure, unspecified; E78.5 Hyperlipidemia, unspecified; R79.89 Other specified abnormal findings of blood chemistry; Z78.0 Asymptomatic menopausal state; Z79.01 Long term (current) use of anticoagulants
CPT/HCPCS: 36415; 80053; 80061; 82306; 84443; 85025; 87389

== ENCOUNTER 2023-01-12 09:17 | Emergency (ER) | payer MEDICAID, OTHER, SELFPAY ==
[2023-01-12] MEDS ORDERED: Albuterol 2.5 MG/0.5 ML NEB ONE (10:20)
[2023-01-12] MEDS ORDERED: Ipratropium Bromide 2.5 ml Neb ONE (10:20)
[2023-01-12] MEDS ORDERED: methylPREDNISolone Sod Succ/PF 125 MG/2 ML VIAL ONE (10:22)
[2023-01-12] MEDS ORDERED: Ketorolac Tromethamine 30 MG/ML VIAL ONE (10:22)
[2023-01-12] MEDS ORDERED: Acetaminophen 500 MG TAB ONE (10:22)
[2023-01-12 10:37] LABS: Hemoglobin 13.2 g/dL (12.0-16.0); Red Blood Cell (RBC) Count 4.35 mill/uL (4.20-5.40); White Blood Cell (WBC) Count 10.8 10x3/uL (4.8-10.8)
[2023-01-12 10:38] LABS: %Lymphocytes 24.8 % (21.0-51.0); %Neutrophils 55.4 % (42.0-75.0); Hematocrit 41.6 % (36.0-47.0); Mean Corpuscular HGB CONC 31.8 g/dL (32.0-36.0); Mean Corpuscular Hemoglobin 30.4 pg (27.0-31.0); Mean Corpuscular Volume 95.5 fl (78.0-98.0); Mean Platelet Volume 8.3 fL (7.4-10.4); Platelet Count 373 10x3/uL (130-400); RBC Distribution Width 13.8 % (11.5-14.5); Troponin I Less than 0.010 ng/mL (< 0.028)
[2023-01-12 10:39] LABS: #Basophils 0.3 thou/uL (0.0-0.2); #Eosinphils 0.9 thou/uL (0.0-0.7); #Lymphocytes 2.7 thou/uL (1.20-3.40); #Monocytes 0.9 thou/uL (0.11-0.59); %Basophils 2.7 % (0.0-1.0); %Eosinophils 8.5 % (0.0-10.0); %Monocytes 8.6 % (0.0-10.0)
[2023-01-12] MEDS ORDERED: Potassium Chloride 20 MEQ TAB ONE (10:44)
[2023-01-12] MEDS ORDERED: Sodium Chloride 0.9% 500 ML ONE (10:44)
[2023-01-12 10:56] LABS: Magnesium 1.9 mg/dL (1.6-2.6)
[2023-01-12 11:08] LABS: ALT (SGPT) 8 U/L (8-55); AST (SGOT) 15 U/L (5-34); Alkaline Phosphatase 101 U/L (40-110); Anion Gap 17 mmol/L (10-20); BUN (Urea Nitrogen) 16 mg/dL (9.8-20.1); Bilirubin, Total 1.1 mg/dL (0.2-1.2); Calc. Creatinine Clearance 0 mL/min (70-130); Calcium 9.7 mg/dL (7.8-10.44); Carbon Dioxide 23 mmol/L (23-31); Chloride 104 mmol/L (98-107); Estimated GFR 53; Globulin 3.4 g/dL (2.4-3.5); Glucose 99 mg/dL (80-115); Potassium 4.6 mmol/L (3.5-5.1); Protein, Total 7.4 g/dL (5.8-8.1); Sodium 139 mmol/L (136-145)
== END 2023-01-12 11:39 | disposition home or self-care (01) ==
LOC: MADERS 09:17
DX: J45.901 Unspecified asthma with (acute) exacerbation (principal); E78.5 Hyperlipidemia, unspecified; I11.0 Hypertensive heart disease with heart failure; I50.9 Heart failure, unspecified; E03.9 Hypothyroidism, unspecified; Z87.891 Personal history of nicotine dependence; Z79.899 Other long term (current) drug therapy; Z79.82 Long term (current) use of aspirin; Z11.52 Encounter for screening for COVID-19
CPT/HCPCS: 36415; 36416; 71045; 80053; 83605; 83735; 83880; 84484; 85025; 85379; 87040; 87635; 87804; 93005; 94760; 96361; 96374; 96375; J1885; J2930; J7030; J7611

== ENCOUNTER 2023-01-17 12:05 | Emergency (ER) | payer MEDICAID ==
[2023-01-17] MEDS ORDERED: Ipratropium/Albuterol 3 ML NEB ONE (12:08)
[2023-01-17] MEDS ORDERED: Furosemide 40 MG/4 ML VIAL ONE (12:42)
[2023-01-17 13:00] LABS: Hematocrit 41.8 % (36.0-47.0); Hemoglobin 13.3 g/dL (12.0-16.0); Mean Corpuscular HGB CONC 31.7 g/dL (32.0-36.0); Mean Corpuscular Volume 94.7 fl (78.0-98.0); Mean Platelet Volume 9.1 fL (7.4-10.4); Platelet Count 374 10x3/uL (130-400); Red Blood Cell (RBC) Count 4.42 mill/uL (4.20-5.40); White Blood Cell (WBC) Count 16.1 10x3/uL (4.8-10.8)
[2023-01-17 13:17] LABS: ALT (SGPT) 17 U/L (8-55); AST (SGOT) 14 U/L (5-34); Albumin 4.1 g/dL (3.4-4.8); Alkaline Phosphatase 101 U/L (40-110); Anion Gap 17 mmol/L (10-20); BUN (Urea Nitrogen) 16 mg/dL (9.8-20.1); Bilirubin, Total 1.8 mg/dL (0.2-1.2); Calc. Creatinine Clearance 0 mL/min (70-130); Calcium 9.2 mg/dL (7.8-10.44); Carbon Dioxide 20 mmol/L (23-31); Chloride 105 mmol/L (98-107); Estimated GFR 54; Globulin 3.5 g/dL (2.4-3.5); Glucose 140 mg/dL (80-115); Potassium 4.1 mmol/L (3.5-5.1); Protein, Total 7.6 g/dL (5.8-8.1); Sodium 138 mmol/L (136-145)
[2023-01-17 13:18] LABS: Critical Call w/ Read Back No
[2023-01-17 13:19] LABS: Anisocytosis SLIGHT = 6-15 cells (100X) (0-5/hpf); Band 3 % (5-11); Eosinophils 3 % (0-10); Lymphocytes 6 % (21-51); MDiff Complete? YES; Manual Diff?? YES; Monocytes 4 % (0-10); Neutrophil 84 % (42-75); Platelet Adequacy Comment Appears Adequate; Troponin I 0.015 ng/mL (< 0.028)
== END 2023-01-17 13:45 | disposition home or self-care (01) ==
LOC: MADERS 12:05
DX: J45.909 Unspecified asthma, uncomplicated (principal); I11.0 Hypertensive heart disease with heart failure; I50.9 Heart failure, unspecified; I48.91 Unspecified atrial fibrillation; Z87.891 Personal history of nicotine dependence; Z79.82 Long term (current) use of aspirin; Z79.899 Other long term (current) drug therapy
CPT/HCPCS: 71046; 80053; 83880; 84484; 85025; 96374; J1940; J7620

== ENCOUNTER 2023-03-21 11:13 | Emergency (ER) | payer OTHER, MEDICAID ==
[2023-03-21 12:37] LABS: #Basophils 0.1 thou/uL (0.0-0.2); #Eosinphils 0.6 thou/uL (0.0-0.7); #Lymphocytes 1.8 thou/uL (1.20-3.40); #Neutrophils 10.6 thou/uL (1.40-6.50); %Basophils 0.9 % (0.0-1.0); %Eosinophils 4.3 % (0.0-10.0); %Lymphocytes 12.8 % (21.0-51.0); %Monocytes 6.9 % (0.0-10.0); %Neutrophils 75.1 % (42.0-75.0); Hematocrit 44.5 % (36.0-47.0); Hemoglobin 14.3 g/dL (12.0-16.0); Mean Corpuscular HGB CONC 32.2 g/dL (32.0-36.0); Mean Corpuscular Volume 93.2 fl (78.0-98.0); Mean Platelet Volume 8.5 fL (7.4-10.4); Platelet Count 386 10x3/uL (130-400); RBC Distribution Width 13.1 % (11.5-14.5); Red Blood Cell (RBC) Count 4.78 mill/uL (4.20-5.40); White Blood Cell (WBC) Count 14.1 10x3/uL (4.8-10.8)
[2023-03-21] MEDS ORDERED: fentaNYL 50 mcg/mL 1 mL Vial ONE (12:48)
[2023-03-21] MEDS ORDERED: Ondansetron PF 4 MG/2 ML Vial ONE (12:49)
[2023-03-21 12:55] LABS: ALT (SGPT) 7 U/L (8-55); AST (SGOT) 16 U/L (5-34); Albumin 4.1 g/dL (3.4-4.8); Alkaline Phosphatase 87 U/L (40-110); Anion Gap 14 mmol/L (10-20); BUN (Urea Nitrogen) 10 mg/dL (9.8-20.1); Bilirubin, Total 1.6 mg/dL (0.2-1.2); Calc. Creatinine Clearance 0 mL/min (70-130); Calcium 9.7 mg/dL (7.8-10.44); Carbon Dioxide 22 mmol/L (23-31); Chloride 107 mmol/L (98-107); Estimated GFR 68; Globulin 3.2 g/dL (2.4-3.5); Glucose 125 mg/dL (80-115); Lipase 57 U/L (8-78); Potassium 3.7 mmol/L (3.5-5.1); Protein, Total 7.3 g/dL (5.8-8.1); Sodium 139 mmol/L (136-145)
[2023-03-21] MEDS ORDERED: cefTRIAXone (ROCEPHIN) 1 GM VIAL ONE (13:54)
[2023-03-21] MEDS ORDERED: metroNIDAZOLE 500 MG (100 mL) BAG ONE (13:55)
[2023-03-21 15:26] LABS: Bilirubin Negative (Negative); Blood, Urine Trace (Negative); Glucose, Urine (Dipstick) Negative (Negative); Ketone, Urine Negative (Negative); Leukocyte Negative (Negative); Nitrite Negative (Negative); Protein, Urine (Dipstick) Negative (Neg-Trace); Urobilinogen 0.2 mg/dL (Less than 2); pH, Urine 5.5 (5.0-9.0)
[2023-03-21 15:28] LABS: Clarity Hazy (Clear)
[2023-03-21 15:30] LABS: Bacteria/HPF 1+ HPF (None Seen); CAUTI Indications for Culture Pelvic or flank pain; RBC/HPF 0-3 HPF (0-3); WBC/HPF 0-3 HPF (0-3)
[2023-03-21 15:31] LABS: Urine Culture Reflex No No
== END 2023-03-21 16:00 | disposition short-term general hospital (02) ==
LOC: MADERS 11:13
DX: K56.699 Other intestinal obstruction unspecified as to partial versus complete obstruction (principal); I11.0 Hypertensive heart disease with heart failure; I50.9 Heart failure, unspecified; E78.5 Hyperlipidemia, unspecified; E03.9 Hypothyroidism, unspecified; I48.91 Unspecified atrial fibrillation; Z87.891 Personal history of nicotine dependence; Z79.82 Long term (current) use of aspirin; Z79.899 Other long term (current) drug therapy
CPT/HCPCS: 74176; 80053; 81001; 83605; 83690; 85025; 93005; 96365; 96368; 96375; J0696; J2405; J3010

== ENCOUNTER 2023-08-25 09:59 | Outpatient (CLI) | payer OTHER, MEDICARE | END 2023-08-25 10:00 | disposition home or self-care (01) | LOC: MADLAB 09:59 → MADRAD 10:00 | PROVIDERS: ATTEND Family Medicine | DX: M25.512 Pain in left shoulder (principal); G89.29 Other chronic pain ==